=== PATIENT | female | born 1985 | race Caucasian/White ===

== ENCOUNTER 2020-10-07 13:50 | Outpatient (REF) | payer OTHER, SELFPAY ==
--- NOTE | 2020-10-07 13:55 | US_ITS ---
EXAMINATION: US THYROID CLINICAL INFORMATION: Other specified abnormal findings of blood chemistry. COMPARISON: None TECHNIQUE: Linear transducer raymundo-scale and color Doppler examination with attention to the region of the thyroid. FINDINGS: SIZE: Measurements of the thyroid lobes and nodules are given in sagittal, anteroposterior and transverse dimensions respectively. Right Thyroid Lobe: 5.0 x 1.8 x 1.6 cm, volume 7.4 mL. Parenchyma: The gland echotexture is homogeneous. Thyroid vascularity is normal. Left Thyroid Lobe: 5.1 x 1.9 x 1.8 cm, volume 9.0 mL. Parenchyma: The gland echotexture is homogeneous. Thyroid vascularity is normal. Isthmus: 0.5 cm in maximum AP dimension. RIGHT THYROID LOBE: There is 1 nodule seen. 1. Location: Upper pole. Size: 0.4 x 0.2 x 0.4 cm. Nodule characteristics: Heterogeneous, smoothly marginated with no intranodular flow. ISTHMUS: No nodules. LEFT THYROID LOBE: No nodules. NODES: No lymphadenopathy is seen in the tissue surrounding the thyroid gland. US/US thyroid IMPRESSION: Small subcentimeter nonsuspicious right thyroid nodule. Mild thyroid enlargement but otherwise unremarkable.
[2020-10-07 16:41] LABS: MANUAL DIFF FLAG NO
[2020-10-07 16:47] LABS: Basophils Percent Auto 0.8 % (0-2); Eosinophils Absolute Auto 0.1 X10*3/uL (0.0-0.4); Eosinophils Percent Auto 1.7 % (0-4); Imm Gran Abs Auto 0.01 X10*3/uL (0.00-0.03); Imm Gran Pct Auto 0.2 % (0.0-0.4); Lymphocytes Absolute Auto 1.7 X10*3/uL (1.2-4.9); Lymphocytes Percent Auto 34.9 % (20-40); Mean Corpuscular HGB Conc 35.3 g/dl (31.0-35.0); Mean Corpuscular Hemoglobin 33.4 pg (27.0-33.0); Mean Corpuscular Volume 94.7 fL (80-98); Monocytes Absolute Auto 0.4 X10*3/uL (0.1-1.2); Monocytes Percent Auto 7.4 % (2-11); Neutrophils Absolute Auto 2.6 X10*3/uL (2.0-8.3); Platelet Count 238 X10*3/uL (160-400); Red Blood Count 3.59 X10*6/uL (4.20-5.50); Red Cell Distribution Width 12.1 % (11.0-16.0); White Blood Count 4.8 X10*3/uL (4.8-10.8)
[2020-10-07 17:07] LABS: Alanine Aminotransferase 15 U/L (0-31); Albumin Level 4.5 g/dL (3.5-5.0); Alkaline Phosphatase 52 U/L (39-117); Anion Gap 12 (12-20); Aspartate Amino Transferase 18 U/L (5-31); Bilirubin Total 0.5 mg/dL (0.0-1.0); Blood Urea Nitrogen 14 mg/dL (9-16); Calcium 9.3 mg/dL (8.4-10.2); Carbon Dioxide 28 mmol/L (22-29); Chloride 106 mmol/L (96-108); Estimated Glomerular Filt Rate > 60; Glucose Random 60 mg/dL (60-115); Sodium 142 mmol/L (135-145); Total Protein 6.9 g/dL (6.5-8.0)
[2020-10-07 17:30] LABS: TSH reflex Free T4 0.43 mIU/mL (0.32-4.0)
[2020-10-08 06:43] LABS: Triiodothyronine T3 Free 3.1 pg/mL (2.3-4.2)
[2020-10-08 12:08] LABS: Thyroid Peroxidase Antibodies 83 IU/mL (<9)
[2020-10-11 15:13] LABS: Thyrotropin Receptor Antibody 1.74 IU/L (<=2.00)
== END 2020-10-07 13:51 | disposition home or self-care (01) ==
LOC: HO.HMGCX 13:50
PROVIDERS: PCP Nurse Practitioner Family; Visit Provider Nurse Practitioner Family
DX: R79.89 Other specified abnormal findings of blood chemistry (principal)
CPT/HCPCS: 36415; 76536; 80053; 83520; 84443; 84481; 85025; 86376

== ENCOUNTER 2020-10-11 14:21 | Outpatient (REF) | payer OTHER, SELFPAY | END 2020-10-11 14:22 | disposition home or self-care (01) | LOC: HO.HMGCLDS 14:21 | PROVIDERS: PCP Nurse Practitioner Family; Visit Provider Nurse Practitioner Family | DX: Z13.89 Encounter for screening for other disorder (principal) ==

== ENCOUNTER → 2020-12-05 08:38 | Outpatient (BNVA) | payer OTHER, SELFPAY | PROVIDERS: PCP Nurse Practitioner Family; Visit Provider Internal Medicine | DX: E06.3 Autoimmune thyroiditis (principal); E55.9 Vitamin D deficiency, unspecified | CPT/HCPCS: 99202 ==

== ENCOUNTER 2020-12-05 09:47 | Outpatient (REF) | payer OTHER, SELFPAY ==
[2020-12-05 14:49] LABS: Thyroid Stimulating Hormone 0.68 uIU/mL (0.32-4.0)
[2020-12-06 07:47] LABS: Triiodothyronine T3 Total 90 ng/dL (76-181)
[2020-12-06 10:52] LABS: Thyroid Peroxidase Antibodies 76 IU/mL (<9)
[2020-12-09 07:27] LABS: Thyroglobulin Antibody <1 IU/mL (<=1); Thyroglobulin Level 6.4 ng/mL
[2020-12-11 15:52] LABS: Thyroid Stimulating Immunoglob 226 % baseline (<140)
== END 2020-12-05 09:48 | disposition home or self-care (01) ==
LOC: HO.10HDL 09:47
PROVIDERS: Visit Provider Internal Medicine
DX: E04.9 Nontoxic goiter, unspecified (principal); E06.3 Autoimmune thyroiditis; E55.9 Vitamin D deficiency, unspecified
CPT/HCPCS: 36415; 83520; 84432; 84439; 84443; 84445; 84480; 86376; 86800

== ENCOUNTER → 2021-01-01 13:43 | Outpatient (REF) | payer OTHER, SELFPAY ==
--- NOTE | 2021-01-01 14:00 | CA_ITS ---
Transthoracic Echocardiogram Patient (Last, First, Middle): Joann Montejo M Gender: Female Date of : 1985 Age: 35 Procedure Date: 01/01/2021 Procedure Type: Transthoracic Echocardiogram Location: OP Height: 165.1 cm Weight: 81.65 kg BSA: 1.89 m2 Heart Rate: bpm BP: 120 / 80 mmHg Efficiency Analyst: RAY Referring MD: Sean Lorenz MD Machinery Cleaner: Seng Whitman MD Symptoms: I36.1 NON RHEUMATIC TRICUSPID VALVE INSUFFICIENCY Study Quality: Good ECG Rhythm: Sinus Conclusions: - Essentially normal study with mild TR Findings Left Ventricle Normal left ventricular size, thickness, and systolic function. The visually estimated ejection fraction is between 55-60%. Diastolic function is normal for age. Right Ventricle Normal right ventricular cavity size and systolic function. Atria Both atria are normal in size. There is no evidence of interatrial shunt. Aortic Valve The aortic valve structure and function is likely normal. There is no aortic valve stenosis. There is no aortic valve regurgitation. Mitral Valve Normal mitral valve structure and function. There is trace mitral valve regurgitation. There is no mitral valve stenosis. Pulmonic Valve The pulmonic valve was not well visualized. Tricuspid Valve Likely normal tricuspid valve structure and function. There is mild tricuspid valve regurgitation. The right ventricular systolic pressure is normal. The right ventricular systolic pressure is 20 mmHg. Normal right atrial pressure. There is no evidence of pulmonary hypertension. Great Vessels All visible segments of the aorta are normal in size. The pulmonary artery was not well visualized. Venous The inferior vena cava is normal in size and collapses greater than 50% with inspiration. Pericardium/Pleural There is no evidence of pericardial effusion. Prior Study Comparison Changes noted compared to prior study dated: 12/27/2019. TR appears to be milder on this study Measurements M-Mode Liner Measurements Normals - Women/Men LVIDd: 4.94 3.9-5.3/4.2-5.9 cm LVIDd Index: 2.61 1.9-3.2 cm/m2 LVIDs: 3.65 2.0-3.8 cm M-Mode Volumes LV EDV: 115.00 LV ESV: 56.30 2D Linear Measurements IVSd: 0.94 0.6-0.9/0.6-1.0 cm LVIDd: 4.65 3.9-5.3/4.2-5.9 cm LVIDd Index: 2.46 2.4-3.2/2.2-3.1 cm/m2 LVIDs: 3.49 2.0-3.6 cm LVPWd: 0.82 0.7-1.1 cm Ao Root: 2.80 2.1-3.5 cm LA Diam: 2.90 2.7-3.8/3.0-4.0 cm LAIDs Index: 1.53 1.5-2.3 cm/m2 LV Mass: 168.45 67-162/88-224 g LV Mass Index: 89.13 43-95/49-115 g/m2 LVOT Diam: 2.00 3.0+(-)1.3 cm 2D Systolic Function EF 4C: 52.70 >55% EF 2C: 60.70 >55% EF BiP: 57.10 >55% M-Mode Systolic Function FS: 26.10 27-47/25-43% LVEF: 51.00 >55% Mitral Valve MV Pk E: 0.71 MV PK A: 0.45 MV Decel Time: 183.00 E/A: 1.60 E'Lateral: 13.50 E'Medial: 8.92 E/E' Med: 8.00 E/E' Lat: 5.30 PHT: 54.00 MVA PHT: 4.07 Decel [place]: 3.89 Aortic Valve AoV Pk Chad: 1.30 AoV Pk Grad: 7.00 LVOT LVOT Pk Chad: 1.17 LVOT Mn Chad: 0.76 LVOT VTI: 0.21 LVOT Pk Grad: 5.00 LVOT Mn Grad: 3.00 LVOT Diam: 2.00 LVOT Area: 3.14 Diastolic Function MV Pk E: 0.71 MV Pk A: 0.45 E/A: 1.60 E'Medial: 8.92 E/E' Med: 8.00 E' Laterial: 13.50 E/E' Lat: 5.30 Tricuspid Valve TR Pk Chad: 2.04 TR Pk Grad: 17.00 RA Press: 3.00 RVSP: 20.00 Great Vessels Aorta Ao Root-2D: 2.80 2.0-3.7 cm Ao Asc: 3.30 2.1-3.4 cm Ao Arch: 2.80 Updated in Other Vendor System with Status of Final Seng Whitman MD electronically signed on 01/01/2021 4:11:21 PM with status of Final
== END ==
LOC: HO.CARD 13:43
PROVIDERS: Visit Provider Internal Medicine
DX: I36.1 Nonrheumatic tricuspid (valve) insufficiency (principal)
CPT/HCPCS: 93306

== ENCOUNTER → 2021-01-07 15:00 | Outpatient (BNVA) | payer OTHER, SELFPAY | PROVIDERS: PCP Nurse Practitioner Family; Visit Provider Internal Medicine | DX: I36.1 Nonrheumatic tricuspid (valve) insufficiency (principal) | CPT/HCPCS: 93005 ==

== ENCOUNTER 2021-01-18 11:16 | Outpatient (REF) | payer OTHER, SELFPAY | END 2021-01-18 11:17 | disposition home or self-care (01) | LOC: HO.LNP 11:16 | PROVIDERS: Visit Provider Hospitalist | DX: R42 Dizziness and giddiness (principal); Z20.822 Contact with and (suspected) exposure to COVID-19 | CPT/HCPCS: U0003; U0005 ==

== ENCOUNTER 2021-01-28 15:40 | Outpatient (REF) | payer OTHER, SELFPAY ==
--- NOTE | ~2021-01-28 | XR_ITS ---
EXAMINATION: XR CHEST CLINICAL INFORMATION: Shortness of breath COMPARISON: None TECHNIQUE: 2 views of the chest were obtained. FINDINGS: No focal consolidation. There is no pneumothorax. The trachea is midline. The cardiac mediastinal silhouette is not enlarged. There is no pleural effusions. Structures are intact. Soft tissues are unremarkable. XR/XR chest 2V IMPRESSION: No acute cardiopulmonary process.
== END 2021-01-28 15:41 | disposition home or self-care (01) ==
LOC: HO.HMGCX 15:40
PROVIDERS: PCP Nurse Practitioner Family; Visit Provider Nurse Practitioner Family
DX: R06.02 Shortness of breath (principal)
CPT/HCPCS: 71046

== ENCOUNTER 2021-01-29 10:21 | Outpatient (REF) | payer OTHER, SELFPAY ==
[2021-01-29 11:11] LABS: MANUAL DIFF FLAG NO
[2021-01-29 11:25] LABS: Basophils Percent Auto 0.6 % (0-2); Eosinophils Absolute Auto 0.1 X10*3/uL (0.0-0.4); Eosinophils Percent Auto 1.5 % (0-4); Hemoglobin 11.9 g/dl (12.0-16.0); Imm Gran Abs Auto 0.01 X10*3/uL (0.00-0.03); Imm Gran Pct Auto 0.2 % (0.0-0.4); Lymphocytes Absolute Auto 1.6 X10*3/uL (1.2-4.9); Lymphocytes Percent Auto 34.5 % (20-40); Mean Corpuscular Hemoglobin 31.5 pg (27.0-33.0); Mean Corpuscular Volume 92.6 fL (80-98); Mean Platelet Volume 10.8 fL (9.4-12.3); Monocytes Absolute Auto 0.3 X10*3/uL (0.1-1.2); Monocytes Percent Auto 6.7 % (2-11); Neutrophils Absolute Auto 2.6 X10*3/uL (2.0-8.3); Neutrophils Percent Auto 56.5 % (45-73); Platelet Count 247 X10*3/uL (160-400); Red Blood Count 3.78 X10*6/uL (4.20-5.50); Red Cell Distribution Width 12.2 % (11.0-16.0); White Blood Count 4.7 X10*3/uL (4.8-10.8)
[2021-01-29 11:33] LABS: D Dimer < 200 NG/ML
[2021-01-29 11:48] LABS: Anion Gap 13 (12-20); Blood Urea Nitrogen 15 mg/dL (9-16); Calcium 9.7 mg/dL (8.4-10.2); Carbon Dioxide 28 mmol/L (22-29); Chloride 104 mmol/L (96-108); Estimated Glomerular Filt Rate > 60; Glucose Random 80 mg/dL (60-115); Sodium 141 mmol/L (135-145)
== END 2021-01-29 10:22 | disposition home or self-care (01) ==
LOC: HO.HMGCLDS 10:21
PROVIDERS: PCP Nurse Practitioner Family; Visit Provider Nurse Practitioner Family
DX: R06.02 Shortness of breath (principal)
CPT/HCPCS: 36415; 80048; 85025; 85379

== ENCOUNTER → 2021-02-10 14:22 | Outpatient (BNVA) | payer OTHER, SELFPAY | PROVIDERS: PCP Nurse Practitioner Family; Visit Provider Internal Medicine ==

== ENCOUNTER 2021-03-21 12:09 | Outpatient (REF) | payer OTHER, SELFPAY ==
[2021-03-21 13:58] LABS: MANUAL DIFF FLAG NO
[2021-03-21 14:05] LABS: Basophils Percent Auto 0.6 % (0-2); Eosinophils Absolute Auto 0.1 X10*3/uL (0.0-0.4); Eosinophils Percent Auto 1.3 % (0-4); Hematocrit 38.5 % (37-47); Imm Gran Abs Auto 0.01 X10*3/uL (0.00-0.03); Imm Gran Pct Auto 0.2 % (0.0-0.4); Lymphocytes Absolute Auto 1.8 X10*3/uL (1.2-4.9); Lymphocytes Percent Auto 32.7 % (20-40); Mean Corpuscular HGB Conc 33.8 g/dl (31.0-35.0); Mean Corpuscular Hemoglobin 31.9 pg (27.0-33.0); Mean Corpuscular Volume 94.4 fL (80-98); Mean Platelet Volume 10.5 fL (9.4-12.3); Monocytes Absolute Auto 0.4 X10*3/uL (0.1-1.2); Monocytes Percent Auto 7.4 % (2-11); Neutrophils Absolute Auto 3.1 X10*3/uL (2.0-8.3); Neutrophils Percent Auto 57.8 % (45-73); Platelet Count 264 X10*3/uL (160-400); Red Blood Count 4.08 X10*6/uL (4.20-5.50); Red Cell Distribution Width 12.5 % (11.0-16.0); White Blood Count 5.4 X10*3/uL (4.8-10.8)
[2021-03-21 14:18] LABS: Alanine Aminotransferase 17 U/L (0-31); Albumin Level 4.7 g/dL (3.5-5.0); Alkaline Phosphatase 42 U/L (39-117); Anion Gap 13 (12-20); Aspartate Amino Transferase 21 U/L (5-31); Bilirubin Total 0.5 mg/dL (0.0-1.0); Blood Urea Nitrogen 15 mg/dL (9-16); Calcium 10.1 mg/dL (8.4-10.2); Carbon Dioxide 26 mmol/L (22-29); Chloride 103 mmol/L (96-108); Estimated Glomerular Filt Rate > 60; Glucose Random 96 mg/dL (60-115); Iron 61 mcg/dL (30-160); Percent Iron Saturation 14 % (15-50); Potassium 4.2 mmol/L (3.3-5.1); Sodium 138 mmol/L (135-145); Total Iron Binding Capacity 442 mcg/dL (228-428); Total Protein 7.7 g/dL (6.5-8.0); Unsaturated Iron Binding 381 ug/dL
[2021-03-21 14:40] LABS: Ferritin 35 ng/mL (10-122)
[2021-03-21 14:54] LABS: Folate 18.6 ng/mL (> or = 4.0); Vitamin B12 598 pg/mL (200-900)
[2021-03-24 20:21] LABS: Intrinsic Factor Antibodies Negative (Negative)
[2021-03-26 11:42] LABS: Parietal Cell Antibody 24.4 Unit (<=20.0)
[2021-03-27 10:16] LABS: Methylmalonic Acid 128 nmol/L (87-318)
== END 2021-03-21 12:10 | disposition home or self-care (01) ==
LOC: HO.HMGCLDS 12:09
PROVIDERS: PCP Nurse Practitioner Family; Visit Provider Nurse Practitioner Family
DX: R42 Dizziness and giddiness (principal)
CPT/HCPCS: 36415; 80053; 82607; 82728; 82746; 83516; 83540; 83921; 85025; 86340

== ENCOUNTER 2021-04-15 09:06 | Outpatient (REF) | payer OTHER, SELFPAY ==
[2021-04-15 12:10] LABS: D Dimer < 200 NG/ML
[2021-04-15 12:42] LABS: Thyroid Stimulating Hormone 0.83 uIU/mL (0.32-4.0)
[2021-04-16 17:16] LABS: Thyroid Peroxidase Antibodies 116 IU/mL (<9)
[2021-04-18 15:57] LABS: Thyroid Stimulating Immunoglob 210 % baseline (<140)
== END 2021-04-15 09:07 | disposition home or self-care (01) ==
LOC: HO.HMGCLDS 09:06
PROVIDERS: PCP Nurse Practitioner Family; Visit Provider Internal Medicine
DX: O26.90 Pregnancy related conditions, unspecified, unspecified trimester (principal); E06.3 Autoimmune thyroiditis
CPT/HCPCS: 36415; 84439; 84443; 84445; 85379; 86376

== ENCOUNTER → 2021-05-15 14:24 | Outpatient (BNVA) | payer OTHER, SELFPAY | PROVIDERS: PCP Nurse Practitioner Family; Visit Provider Internal Medicine ==

== ENCOUNTER 2021-05-28 09:57 | Outpatient (REF) | payer OTHER, SELFPAY ==
[2021-05-28 11:07] LABS: Free T4 (Free Thyroxine) 1.05 ng/dL (0.71-1.85); Thyroid Stimulating Hormone 0.18 uIU/mL (0.32-4.0)
[2021-05-29 08:07] LABS: Triiodothyronine T3 Free 2.9 pg/mL (2.3-4.2)
[2021-06-04 15:51] LABS: Thyroid Stimulating Immunoglob 180 % baseline (<140)
== END 2021-05-28 09:58 | disposition home or self-care (01) ==
LOC: HO.10HDL 09:57
PROVIDERS: Visit Provider Internal Medicine
DX: E05.00 Thyrotoxicosis with diffuse goiter without thyrotoxic crisis or storm (principal); E06.3 Autoimmune thyroiditis
CPT/HCPCS: 36415; 84439; 84443; 84445; 84481

== ENCOUNTER 2021-07-07 08:36 | Outpatient (REF) | payer OTHER, SELFPAY ==
[2021-07-07 12:01] LABS: Free T4 (Free Thyroxine) 0.93 ng/dL (0.71-1.85); Thyroid Stimulating Hormone 0.49 uIU/mL (0.32-4.0)
[2021-07-09 01:58] LABS: Triiodothyronine T3 Free 2.9 pg/mL (2.3-4.2)
== END 2021-07-07 08:37 | disposition home or self-care (01) ==
LOC: HO.HMGCLDS 08:36
PROVIDERS: PCP Nurse Practitioner Family; Visit Provider Internal Medicine
DX: E05.00 Thyrotoxicosis with diffuse goiter without thyrotoxic crisis or storm (principal)
CPT/HCPCS: 36415; 84439; 84443; 84481

== ENCOUNTER 2021-08-08 14:28 | Outpatient (REF) | payer OTHER, SELFPAY ==
[2021-08-08 18:28] LABS: Free T4 (Free Thyroxine) 0.85 ng/dL (0.71-1.85); Thyroid Stimulating Hormone 0.56 uIU/mL (0.32-4.0)
[2021-08-10 13:12] LABS: Triiodothyronine T3 Free 2.6 pg/mL (2.3-4.2)
== END 2021-08-08 14:29 | disposition home or self-care (01) ==
LOC: HO.HMGCLDS 14:28
PROVIDERS: PCP Nurse Practitioner Family; Visit Provider Internal Medicine
DX: E05.00 Thyrotoxicosis with diffuse goiter without thyrotoxic crisis or storm (principal)
CPT/HCPCS: 36415; 84439; 84443; 84481

== ENCOUNTER 2021-09-18 12:55 | Outpatient (REF) | payer OTHER, SELFPAY ==
[2021-09-18 14:45] LABS: Free T4 (Free Thyroxine) 0.79 ng/dL (0.71-1.85); Thyroid Stimulating Hormone 0.66 uIU/mL (0.32-4.0)
[2021-09-20 05:21] LABS: Triiodothyronine T3 Total 142 ng/dL (76-181)
[2021-09-24 14:11] LABS: Thyrotropin Receptor Antibody 1.18 IU/L (<=2.00)
== END 2021-09-18 12:56 | disposition home or self-care (01) ==
LOC: HO.HMGCLDS 12:55
PROVIDERS: PCP Nurse Practitioner Family; Visit Provider Internal Medicine
DX: E05.00 Thyrotoxicosis with diffuse goiter without thyrotoxic crisis or storm (principal)
CPT/HCPCS: 36415; 83520; 84439; 84443; 84480

== ENCOUNTER → 2021-10-10 12:49 | Outpatient (REF) | payer OTHER, SELFPAY ==
--- NOTE | 2021-10-10 12:52 | CA_ITS ---
Transthoracic Echocardiogram Patient (Last, First, Middle): Joann Rowell M Gender: Female Date of : 1985 Age: 36 Procedure Date: 10/10/2021 Procedure Type: Transthoracic Echocardiogram Location: OP Height: 165.1 cm Weight: 88.45 kg BSA: 1.96 m2 Heart Rate: bpm BP: 118 / 65 mmHg Sales Operations Assistant: Referring MD: Sean Lorenz MD Symptoms: I36.1 - Nonrheumatic tricuspid (valve) insufficiency Study Quality: Good ECG Rhythm: Sinus Conclusions: - The left ventricular systolic function is normal. The visually estimated ejection fraction is between 60-65%. - Normal right ventricular cavity size and systolic function. - Trace to mild tricuspid regurgitation. Findings Left Ventricle Normal left ventricular cavity size. There is normal left ventricular wall thickness. The left ventricular systolic function is normal. The visually estimated ejection fraction is between 60-65%. There is no evidence of regional wall motion abnormalities. Diastolic function is normal for age. Right Ventricle Normal right ventricular cavity size and systolic function. Atria Both atria are normal in size. Aortic Valve There is a normal trileaflet aortic valve. There is no aortic valve stenosis. There is no aortic valve regurgitation. Mitral Valve The mitral valve appears normal. There is no mitral valve regurgitation. There is no mitral valve stenosis. Pulmonic Valve The pulmonic valve was not well visualized. Tricuspid Valve Normal tricuspid valve structure. The pulmonary artery systolic pressure is normal. Trace to mild tricuspid regurgitation. Great Vessels The aortic annulus, sinuses of valsalva, and asc aorta are normal in size. Venous The inferior vena cava is normal in size and collapses greater than 50% with inspiration. Pericardium/Pleural There is no evidence of pericardial effusion. Prior Study Comparison No significant change compared to prior study dated: 01/01/2021. Measurements 2D Linear Measurements RVIDd: 3.59 RVIDd Index: 1.83 IVSd: 0.91 0.6-0.9/0.6-1.0 cm LVIDd: 3.93 3.9-5.3/4.2-5.9 cm LVIDd Index: 2.01 2.4-3.2/2.2-3.1 cm/m2 LVIDs: 2.49 2.0-3.6 cm LVPWd: 0.91 0.7-1.1 cm Ao Root: 3.00 2.1-3.5 cm LA Diam: 3.40 2.7-3.8/3.0-4.0 cm LAIDs Index: 1.73 1.5-2.3 cm/m2 LV Mass: 134.18 67-162/88-224 g LV Mass Index: 68.46 43-95/49-115 g/m2 LVOT Diam: 2.10 3.0+(-)1.3 cm Mitral Valve MV Pk E: 0.70 MV PK A: 0.60 MV Decel Time: 217.00 E/A: 1.20 E'Lateral: 18.10 E'Medial: 12.90 E/E' Med: 5.40 E/E' Lat: 3.90 PHT: 64.00 MVA PHT: 3.44 Decel [place]: 3.23 Aortic Valve AoV Pk Chad: 1.71 AoV Mn Chad: 1.04 AoV VTI: 0.35 AoV Pk Grad: 12.00 Aov Mn Grad: 5.00 EARLINE Cont.VTI: 3.13 LVOT LVOT Pk Chad: 1.92 LVOT Mn Chad: 1.11 LVOT VTI: 0.32 LVOT Pk Grad: 15.00 LVOT Mn Grad: 6.00 LVOT Diam: 2.10 LVOT Area: 3.46 Diastolic Function MV Pk E: 0.70 MV Pk A: 0.60 E/A: 1.20 E'Medial: 12.90 E/E' Med: 5.40 E' Laterial: 18.10 E/E' Lat: 3.90 Right Ventricle TAPSE (mm): 25.00 TVS' Chad: 14.00 Tricuspid Valve TR Pk Chad: 2.43 TR Pk Grad: 24.00 Great Vessels Aorta Ao Root-2D: 3.00 2.0-3.7 cm Ao Asc: 3.40 2.1-3.4 cm Pulmonary Valve PV Pk Chad: 1.35 Peak PV Grad: 7.00 Updated in Other Vendor System with Status of Final Sean Lorenz MD electronically signed on 10/11/2021 11:05:17 AM with status of Final
== END ==
LOC: HO.CARD 12:49
PROVIDERS: Visit Provider Internal Medicine
DX: I36.1 Nonrheumatic tricuspid (valve) insufficiency (principal)
CPT/HCPCS: 93306

== ENCOUNTER 2021-10-14 14:23 | Outpatient (REF) | payer OTHER, SELFPAY ==
[2021-10-14 17:13] LABS: Free T4 (Free Thyroxine) 0.78 ng/dL (0.71-1.85)
[2021-10-15 23:47] LABS: Triiodothyronine T3 Free 2.6 pg/mL (2.3-4.2)
== END 2021-10-14 14:24 | disposition home or self-care (01) ==
LOC: HO.HMGCLDS 14:23
PROVIDERS: PCP Nurse Practitioner Family; Visit Provider Internal Medicine
DX: E05.00 Thyrotoxicosis with diffuse goiter without thyrotoxic crisis or storm (principal)
CPT/HCPCS: 36415; 84439; 84443; 84481

== ENCOUNTER → 2021-10-16 10:10 | Outpatient (BNVA) | payer OTHER, SELFPAY | PROVIDERS: PCP Nurse Practitioner Family; Referring Provider Nurse Practitioner Family; Visit Provider Internal Medicine ==

== ENCOUNTER → 2021-10-22 09:31 | Outpatient (BNVA) | payer OTHER, SELFPAY | PROVIDERS: PCP Nurse Practitioner Family; Visit Provider Internal Medicine ==

== ENCOUNTER 2021-11-26 09:09 | Outpatient (REF) | payer OTHER, SELFPAY ==
[2021-11-26 12:09] LABS: Free T4 (Free Thyroxine) 0.79 ng/dL (0.71-1.85); Thyroid Stimulating Hormone 0.93 uIU/mL (0.32-4.0)
== END 2021-11-26 09:10 | disposition home or self-care (01) ==
LOC: HO.HMGCLDS 09:09
PROVIDERS: Visit Provider Internal Medicine
DX: E06.3 Autoimmune thyroiditis (principal); E05.00 Thyrotoxicosis with diffuse goiter without thyrotoxic crisis or storm
CPT/HCPCS: 36415; 84439; 84443

== ENCOUNTER → 2022-03-04 08:39 | Outpatient (BNVA) | payer OTHER, SELFPAY | PROVIDERS: PCP Nurse Practitioner Family; Visit Provider Internal Medicine | DX: Z13.89 Encounter for screening for other disorder (principal) ==

== ENCOUNTER 2022-03-18 14:03 | Outpatient (REF) | payer OTHER, SELFPAY ==
[2022-03-18 17:14] LABS: Free T4 (Free Thyroxine) 1.07 ng/dL (0.71-1.85); Thyroid Stimulating Hormone 0.27 uIU/mL (0.32-4.0)
== END 2022-03-18 14:04 | disposition home or self-care (01) ==
LOC: HO.HMGCLDS 14:03
PROVIDERS: Visit Provider Internal Medicine
DX: E05.00 Thyrotoxicosis with diffuse goiter without thyrotoxic crisis or storm (principal)
CPT/HCPCS: 36415; 84439; 84443

== ENCOUNTER 2022-04-03 12:21 | Outpatient (REF) | payer OTHER, SELFPAY ==
[2022-04-03 14:31] LABS: Free T4 (Free Thyroxine) 1.51 ng/dL (0.71-1.85)
[2022-04-04 23:42] LABS: Triiodothyronine T3 Total 165 ng/dL (76-181)
[2022-04-07 19:20] LABS: Thyroglobulin Antibodies <1 IU/mL (< or = 1); Thyroid Peroxidase Antibodies 226 IU/mL (<9)
[2022-04-08 15:45] LABS: Thyroid Stimulating Immunoglob 157 % baseline (<140)
[2022-04-09 19:57] LABS: Thyrotropin Receptor Antibody <1.00 IU/L (<=2.00)
== END 2022-04-03 12:22 | disposition home or self-care (01) ==
LOC: HO.HMGCLDS 12:21
PROVIDERS: Visit Provider Internal Medicine
DX: E05.00 Thyrotoxicosis with diffuse goiter without thyrotoxic crisis or storm (principal)
CPT/HCPCS: 36415; 83520; 84439; 84445; 84480; 86376; 86800

== ENCOUNTER → 2022-04-14 08:22 | Outpatient (BNVA) | payer OTHER, SELFPAY | PROVIDERS: PCP Nurse Practitioner Family; Visit Provider Internal Medicine | DX: Z13.89 Encounter for screening for other disorder (principal) ==

== ENCOUNTER 2022-05-04 12:38 | Outpatient (REF) | payer OTHER, SELFPAY ==
[2022-05-04 15:53] LABS: Free T4 (Free Thyroxine) 1.86 ng/dL (0.71-1.85); Thyroid Stimulating Hormone < 0.01 uIU/mL (0.32-4.0)
[2022-05-06 04:29] LABS: Triiodothyronine T3 Total 198 ng/dL (76-181)
== END 2022-05-04 12:39 | disposition home or self-care (01) ==
LOC: HO.HMGCLDS 12:38
PROVIDERS: PCP Nurse Practitioner Family; Visit Provider Internal Medicine
DX: E05.00 Thyrotoxicosis with diffuse goiter without thyrotoxic crisis or storm (principal)
CPT/HCPCS: 36415; 84439; 84443; 84480

== ENCOUNTER 2022-05-27 14:53 | Outpatient (REF) | payer OTHER, SELFPAY ==
[2022-05-27 17:01] LABS: Free T4 (Free Thyroxine) 1.33 ng/dL (0.71-1.85)
[2022-05-29 17:11] LABS: Triiodothyronine T3 Total 133 ng/dL (76-181)
== END 2022-05-27 14:54 | disposition home or self-care (01) ==
LOC: HO.HMGCLDS 14:53
PROVIDERS: PCP Nurse Practitioner Family; Visit Provider Internal Medicine
DX: E05.00 Thyrotoxicosis with diffuse goiter without thyrotoxic crisis or storm (principal)
CPT/HCPCS: 36415; 84439; 84480

== ENCOUNTER 2022-06-24 15:05 | Outpatient (REF) | payer OTHER, SELFPAY ==
[2022-06-24 17:48] LABS: Free T4 (Free Thyroxine) 0.83 ng/dL (0.71-1.85); Thyroid Stimulating Hormone 0.33 uIU/mL (0.32-4.0)
[2022-06-25 20:55] LABS: Triiodothyronine T3 Total 85 ng/dL (76-181)
== END 2022-06-24 15:06 | disposition home or self-care (01) ==
LOC: HO.HMGCLDS 15:05
PROVIDERS: PCP Nurse Practitioner Family; Visit Provider Internal Medicine
DX: E05.00 Thyrotoxicosis with diffuse goiter without thyrotoxic crisis or storm (principal)
CPT/HCPCS: 36415; 84439; 84443; 84480

== ENCOUNTER 2022-08-26 14:35 | Outpatient (REF) | payer OTHER, SELFPAY ==
[2022-08-26 17:07] LABS: Free T4 (Free Thyroxine) 0.77 ng/dL (0.71-1.85); Thyroid Stimulating Hormone 4.95 uIU/mL (0.32-4.0)
[2022-08-27 22:17] LABS: Triiodothyronine T3 Total 84 ng/dL (76-181)
== END 2022-08-26 14:36 | disposition home or self-care (01) ==
LOC: HO.HMGCLDS 14:35
PROVIDERS: PCP Nurse Practitioner Family; Visit Provider Internal Medicine
DX: E05.00 Thyrotoxicosis with diffuse goiter without thyrotoxic crisis or storm (principal)
CPT/HCPCS: 36415; 84439; 84443; 84480

== ENCOUNTER 2022-09-15 14:37 | Outpatient (REF) | payer OTHER, SELFPAY ==
[2022-09-15 17:22] LABS: Free T4 (Free Thyroxine) 0.78 ng/dL (0.71-1.85)
[2022-09-16 08:52] LABS: Triiodothyronine T3 Total 92 ng/dL (76-181)
== END 2022-09-15 14:38 | disposition home or self-care (01) ==
LOC: HO.HMGCLDS 14:37
PROVIDERS: PCP Nurse Practitioner Family; Visit Provider Internal Medicine
DX: E05.00 Thyrotoxicosis with diffuse goiter without thyrotoxic crisis or storm (principal)
CPT/HCPCS: 36415; 84439; 84480

== ENCOUNTER 2022-10-12 12:33 | Outpatient (REF) | payer OTHER, SELFPAY ==
[2022-10-12 15:04] LABS: Free T4 (Free Thyroxine) 0.89 ng/dL (0.71-1.85)
[2022-10-14 00:39] LABS: Triiodothyronine T3 Total 95 ng/dL (76-181)
== END 2022-10-12 12:34 | disposition home or self-care (01) ==
LOC: HO.HMGCLDS 12:33
PROVIDERS: PCP Nurse Practitioner Family; Visit Provider Internal Medicine
DX: E05.00 Thyrotoxicosis with diffuse goiter without thyrotoxic crisis or storm (principal)
CPT/HCPCS: 36415; 84439; 84480

== ENCOUNTER 2022-12-02 12:00 | Outpatient (REF) | payer OTHER, SELFPAY ==
[2022-12-02 17:12] LABS: Free T4 (Free Thyroxine) 0.76 ng/dL (0.71-1.85)
[2022-12-04 02:27] LABS: Triiodothyronine T3 Total 84 ng/dL (76-181)
== END 2022-12-02 12:01 | disposition home or self-care (01) ==
LOC: HO.HMGCLDS 12:00
PROVIDERS: PCP Nurse Practitioner Family; Visit Provider Internal Medicine
DX: E05.00 Thyrotoxicosis with diffuse goiter without thyrotoxic crisis or storm (principal)
CPT/HCPCS: 36415; 84439; 84443; 84480

== ENCOUNTER 2022-12-09 13:32 | Outpatient (REF) | payer OTHER, SELFPAY ==
[2022-12-09 14:29] LABS: MANUAL DIFF FLAG NO
[2022-12-09 15:08] LABS: Basophils Percent Auto 0.4 % (0-2); Eosinophils Absolute Auto 0.1 X10*3/uL (0.0-0.4); Eosinophils Percent Auto 0.8 % (0-4); Hematocrit 36.5 % (37.0-47.0); Hemoglobin 12.4 g/dl (12.0-16.0); Imm Gran Abs Auto 0.01 X10*3/uL (0.00-0.03); Imm Gran Pct Auto 0.1 % (0.0-0.4); Lymphocytes Absolute Auto 1.9 X10*3/uL (1.2-4.9); Lymphocytes Percent Auto 26.8 % (20-40); Mean Corpuscular Hemoglobin 31.4 pg (27.0-33.0); Mean Corpuscular Volume 92.4 fL (80.0-98.0); Mean Platelet Volume 10.3 fL (9.4-12.3); Monocytes Absolute Auto 0.4 X10*3/uL (0.1-1.2); Neutrophils Absolute Auto 4.7 x10*3/uL (2.0-8.3); Neutrophils Percent Auto 65.9 % (45-73); Platelet Count 246 X10*3/uL (160-400); Red Blood Count 3.95 X10*6/uL (4.20-5.50); White Blood Count 7.1 X10*3/uL (4.8-10.8)
[2022-12-09 16:02] LABS: Free T4 (Free Thyroxine) 1.05 ng/dL (0.71-1.85)
[2022-12-11 07:53] LABS: Triiodothyronine T3 Total 122 ng/dL (76-181)
== END 2022-12-09 13:33 | disposition home or self-care (01) ==
LOC: HO.LAB 13:32
PROVIDERS: PCP Nurse Practitioner Family; Visit Provider Internal Medicine
DX: E05.00 Thyrotoxicosis with diffuse goiter without thyrotoxic crisis or storm (principal); E06.3 Autoimmune thyroiditis; Z79.899 Other long term (current) drug therapy; Z82.69 Family history of other diseases of the musculoskeletal system and connective tissue
CPT/HCPCS: 36415; 84439; 84480; 85025; 99212

== ENCOUNTER 2022-12-28 11:28 | Outpatient (REF) | payer OTHER, SELFPAY ==
[2022-12-28 14:15] LABS: Free T4 (Free Thyroxine) 0.91 ng/dL (0.71-1.85); Thyroid Stimulating Hormone 0.69 uIU/mL (0.32-4.0); Vitamin D 25-OH Total 17.5 ng/mL (>30)
[2022-12-29 06:32] LABS: Triiodothyronine T3 Total 98 ng/dL (76-181)
[2022-12-31 16:13] LABS: Thyroid Stimulating Immunoglob 205 % baseline (<140)
== END 2022-12-28 11:29 | disposition home or self-care (01) ==
LOC: HO.HMGCLDS 11:28
PROVIDERS: PCP Nurse Practitioner Family; Visit Provider Internal Medicine
DX: E05.00 Thyrotoxicosis with diffuse goiter without thyrotoxic crisis or storm (principal); E55.9 Vitamin D deficiency, unspecified
CPT/HCPCS: 36415; 82306; 84439; 84443; 84445; 84480

== ENCOUNTER → 2023-03-31 14:12 | Outpatient (BNVA) | payer OTHER, SELFPAY | PROVIDERS: PCP Nurse Practitioner Family; Visit Provider Internal Medicine ==

== ENCOUNTER 2023-04-07 14:12 | Outpatient (REF) | payer OTHER, SELFPAY ==
[2023-04-07 17:10] LABS: Thyroid Stimulating Hormone 0.72 uIU/mL (0.32-4.0); Vitamin D 25-OH Total 31.5 ng/mL (>30)
[2023-04-10 07:48] LABS: Triiodothyronine T3 Total 96 ng/dL (76-181)
== END 2023-04-07 14:13 | disposition home or self-care (01) ==
LOC: HO.HMGCLDS 14:12
PROVIDERS: PCP Nurse Practitioner Family; Visit Provider Internal Medicine
DX: E05.00 Thyrotoxicosis with diffuse goiter without thyrotoxic crisis or storm (principal); E55.9 Vitamin D deficiency, unspecified
CPT/HCPCS: 36415; 82306; 84439; 84443; 84480

== ENCOUNTER 2024-03-29 08:30 | Outpatient (AMB) | payer OTHER, SELFPAY ==
--- NOTE | 2024-03-29 08:36 | MHC.PC.OV ---
Vital Signs 03/29/24 08:38 03/29/24 09:05 Height 5 ft 5 in Weight 208 lb BMI 34.6 BP 126/90 H 126/88 Blood Pressure Location Rt brachial Rt brachial Position Sitting Sitting Pulse 61 Pulse Source Pulse Oximeter Pulse Oximetry (%) 98 Oxygen Delivery Method Room Air Intake Visit Reasons: Follow up vomiting blood Intake Note: Patient here to discuss getting a referral to Gastro for possible ulcers because she takes a lot of Nsaids. Allergies No Known Allergies [No Known Allergies*] Allergy (Verified 03/29/24 08:57) Medication List - Last Reconciled 03/29/24 by Leander Calle, REHAB SERVICES AIDE-BC ftctmuyzmd-odbtkqosuxoml-kjsh 50-300-40 mg 1 cap PO DAILY PRN 30 days diazepam 5 mg PO BEDTIME PRN erenumab-aooe (Aimovig Autoinjector) 70 mg subcut meclizine 12.5 mg PO TID PRN needle (disp) 27 gauge As directed ondansetron HCl 8 mg PO Q8H PRN pantoprazole 20 mg PO DAILY sertraline 50 mg PO DAILY 90 days sumatriptan succinate 100 mg PO DIRECTED PRN Tobacco use date assessed: 03/29/24 Dental Screening Dental Screen Date: 03/29/24 Did you have a dental visit in the last 12 months?: No Did you have a dental problem in the last 6 months where you did not have access to dental care?: No Was dental information given to patient?: No HPI Follow up vomiting blood HPI Details Pt reports increased abdominal discomfort. She reports an episode of vomiting months ago with a small amount of blood. She reports that the discomfort is worse after eating. Pt reports early satiety. Will order labs, upper GI series, and refer to GI. Will start low-dose PPI. Denies fever, chills, and dizziness. [facility] Medical History Graves disease Israel's disease Migraine Non-rheumatic tricuspid valve insufficiency Vitamin D deficiency Surgical History History of surgery Hx of section Status post laparoscopic surgery Family History Father Graves disease Mother Paco-Danlos syndrome Social History Housing: House Alcohol intake: never Patient Tobacco Use Status: Former Tobacco user Tobacco use type: Cigarette e-Cigarette/Vaping Use: Never Used Second Hand Smoke Exposure: No service: Yes Current occupational status: employed Current occupation: [employer] Current occupational exposures/hazards: No Cognitive needs: No Hearing needs: No Vision needs: No Questionnaire PHQ-9 Over the last 2 weeks, how often have you been bothered by any of the following problems? 79149 - PHQ-9 Billing: Patient declined-do not bill Source: Developed by Drs. Lino Jaimes, Bekah Fernandes, Lito Guthrie and colleagues, with an educational otto from [employer]. Thrive Questionnaire Date Thrive assessed: 07/02/22 AUDIT C Alcohol Use Questionnaire (AUDIT-C) 1. How often do you have a drink containing alcohol?: Never 3. How often do you have six or more drinks on one occasion?: Never Total Score: 0 Score Reviewed/Action Taken: No JEFFERY-7 AMB Questionnaire JEFFERY-7 Date JEFFERY - 7 assessed: 07/02/22 Source: Developed by Drs. Lino Jaimes, Bekah Fernandes, Lito Guthrie and colleagues, with an educational otto from [employer]. JEFFERY-7 Assessment Billing JEFFERY-7 Assessment Tool: pt declined-do not bill Review of Systems Const Reports as per HPI Physical exam (Primary Care) Vital Signs: Last Vital Signs Pulse 61 03/29/24 08:38 BP 126/90 H 03/29/24 08:38 Pulse Ox 98 03/29/24 08:38 Oxygen Delivery Method Room Air 03/29/24 08:38 BMI result Body Mass Index 34.6 Tobacco/Smoking Status: Tobacco use Status Tobacco use date assessed 03/29/24 03/29/24 08:46 Patient Tobacco Use Status Former Tobacco user 03/29/24 08:36 Tobacco use type Cigarette 03/29/24 08:36 e-Cigarette/Vaping Use Never Used 03/29/24 08:36 Thrive Assessment: Date of Thrive Assessment Date Thrive assessed 07/02/22 03/29/24 08:36 Const General: cooperative Nutritional Appearance: obese Orientation/consciousness: patient oriented x3 Resp Effort & Inspection: normal respiratory effort Auscultation: clear to auscultation bilaterally Cardio Rate: regular rate Rhythm: regular rhythm Heart sounds: S1 normal heart sound present and S2 normal heart sound present GI Palpation (GI): nontender Neuro General: patient oriented x3 Psych Appearance: grossly normal Mental Status: mental status grossly normal Speech and movement: Normal speech and movement present Affect: normal affect Attitude: cooperative Thought process: Normal thought process present Thought content: Normal thought content present Insight: Good insight present (Psych) Judgement: Good judgement present (Psych) Assessment and Plan Assessment & Plan (1) Abdominal discomfort: Code(s): R10.9 - Unspecified abdominal pain Plan: Labs ordered, referred to GI, PPI sent (2) Bloody emesis: Comment: described small droplets Code(s): K92.0 - Hematemesis Plan: upper GI series, PPI started, referral to gastro Plan The patient agreed to the use of a dental assistant medical assistant for this encounter. Scribed for DREW Godinez by Madison Rosas dental assistant medical assistant, on 03/29/2024 at 08:55 EST. Orders: Orders Complete Blood Count Auto Diff Today R10.9 - Unspecified abdominal pain TSH reflex Free T4 Today R10.9 - Unspecified abdominal pain Lipid Panel Today R10.9 - Unspecified abdominal pain FL upper GI series Today K92.0 - Hematemesis, R10.9 - Unspecified abdominal pain Comprehensive [place]. Panel Fast Today R10.9 - Unspecified abdominal pain UA CC w/rflx Micro + Cult Today R10.9 - Unspecified abdominal pain Lipase Today R10.9 - Unspecified abdominal pain Referrals Gastroenterology Referral R10.9 - Unspecified abdominal pain Medications: New pantoprazole 20 mg PO DAILY 90 tabs 0RF Changed From sumatriptan succinate 100 mg PO DIRECTED PRN To sumatriptan succinate 100 mg PO DIRECTED 30 days PRN 30 tabs 0RF migraine headache Coding Level of Care Code Est Pt Level 3 (92596) Diagnoses Abdominal discomfort R10.9 Bloody emesis K92.0
[2024-03-29 08:38] VITALS: BP 126/90; PULSE 61; O2SAT 98; BMI 34.6
[2024-03-29 09:05] VITALS: BP 126/88
== END 2024-03-29 09:13 | disposition home or self-care (01) ==
PROVIDERS: PCP Nurse Practitioner Family; Visit Provider Nurse Practitioner Family
DX: R10.9 Unspecified abdominal pain (principal); K92.0 Hematemesis
CPT/HCPCS: 99213

== ENCOUNTER 2024-05-03 11:41 | Outpatient (AMB) | payer OTHER, SELFPAY ==
[2024-05-03 11:51] VITALS: BP 128/78; PULSE 81; TEMP 37; O2SAT 97; BMI 33.7
--- NOTE | 2024-05-03 11:51 | MHC.OFFWIV ---
Intake Vital Signs 05/03/24 11:51 Height 5 ft 5 in Weight 202 lb 8 oz BMI 33.7 BP 128/78 Blood Pressure Location Lt brachial Position Sitting Pulse 81 Pulse Source Pulse Oximeter Temp 98.6 F Temp Source Oral Pulse Oximetry (%) 97 Intake Visit Reasons: EP sore throat Intake Note: pt is here for sore throat Patient Tobacco Use Status: Former Tobacco user Allergies No Known Allergies [No Known Allergies*] Allergy (Verified 05/03/24 11:51) Do you need a note to return to daycare/school/sports/work: Yes HPI EP sore throat HPI Details 38-year-old female patient presents today with sore throat, ongoing for the last week and worsening over the last couple of days. Reports red throat with notable white spots on her tonsils, and pain with eating and drinking. Denies known exposure to sick contacts. Denies fever or chills. [facility] Medical History Graves disease Non-rheumatic tricuspid valve insufficiency Migraine Vitamin D deficiency Israel's disease Surgical History Hx of section History of surgery Status post laparoscopic surgery Family History Father Graves disease Mother Paco-Danlos syndrome Social History Housing: House Alcohol intake: never Patient Tobacco Use Status: Former Tobacco user Tobacco use type: Cigarette e-Cigarette/Vaping Use: Never Used Second Hand Smoke Exposure: No service: Yes Current occupational status: employed Current occupation: [employer] Current occupational exposures/hazards: No Cognitive needs: No Hearing needs: No Vision needs: No Review of Systems Const All systems reviewed & are unremarkable except as noted in HPI and below Physical Exam Vital Signs: Last Vital Signs Temp 98.6 F 05/03/24 11:51 Pulse 81 05/03/24 11:51 BP 128/78 05/03/24 11:51 Pulse Ox 97 05/03/24 11:51 BMI result Body Mass Index 33.7 Const General: cooperative and no acute distress HEENT Head: Yes normal to inspection Ears: hearing grossly normal bilaterally General nose exam: Normal external nose present Face and sinus: Yes normal facial exam Mouth: Normal oral and palatal mucosa present Throat: Yes posterior oropharynx abnormal (Erythematous, with tonsillar hypertrophy, erythema, and exudate L>R) Neck Neck: Yes no lymphadenopathy Resp Effort & Inspection: normal respiratory effort Auscultation: clear to auscultation bilaterally Cardio Rate: regular rate Rhythm: regular rhythm Skin General skin exam: no rashes or lesions noted Extrem General: Yes capillary refill normal and Yes no clubbing, cyanosis or edema Psych Appearance: grossly normal Mental Status: mental status grossly normal Speech and movement: Normal speech and movement present Results AMB Rapid Strep AMB Rapid Strep Negative Last Edit by Elier Lau CMA on 05/03/24 12:03 Assessment & Plan Assessment & Plan (1) Strep pharyngitis: Code(s): J02.0 - Streptococcal pharyngitis Plan: Rapid strep in the office was negative, however clinically symptoms are consistent with strep pharyngitis as above. We will treat with pen V BID 10 days. Reviewed indications, use, possible side effects of medication. Advised to use [id number] lozenges and warm salt water gargles for symptomatic management. May also take Tylenol as needed. If she does not improve with treatment, or symptoms worsen, she should return to the clinic for further evaluation. She verbalizes understanding and agrees to plan. Orders: Orders AMB Rapid Strep Screen Today Z13.9 - Encounter for screening, unspecified Medications: New penicillin V potassium 500 mg PO BID 10 days 20 tabs 0RF J02.0 - Streptococcal pharyngitis Coding Level of Care Code Est Pt Level 4 (73505) Diagnoses Strep pharyngitis J02.0
== END 2024-05-03 12:12 | disposition home or self-care (01) ==
PROVIDERS: PCP Nurse Practitioner Family; Visit Provider Nurse Practitioner Family
DX: J02.0 Streptococcal pharyngitis (principal)
CPT/HCPCS: 87880; 99214

== ENCOUNTER → 2024-05-03 16:01 | Outpatient (AMB) | payer OTHER, SELFPAY ==
--- NOTE | 2024-05-03 16:04 | A.OFFVIS_ITS ---
Vital Signs 05/03/24 16:12 Height 5 ft 5 in Weight 203 lb 4.259 oz BMI 33.8 BP 128/82 Blood Pressure Location Rt brachial Position Sitting Pulse 98 Pulse Source Pulse Oximeter Pulse Oximetry (%) 96 Oxygen Delivery Method Room Air Intake Visit Reasons: Unspecified abdominal pain. Initial OV Intake Note: Joann presents in office today for a scheduled initial assessment visit. CC; Pt has been experiencing intermittent nausea and vomiting since the beginning of this year with mild hematoemesis. Pt was started on PPI per PCP. Pt reports abdominal pain has been mostly localized to the upper quadrants and seems worse after food intake. Pt does also report some abdominal pain in a localized area surrounding their obliques B/L. Pt reports that she has been taking a large amount of acetaminophen and ibuprofen in addition to sumatriptan for chronic severe migraines over the course of the last few years. Pt also reports having intermittent constipation. Pt reports having a bowel movement approximately 2x per week. Pt denies any diarrhea. Pt has been taking pantoprazole as directed by her PCP and has not noticed any significant changes in presentation. 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 Initial OV: Details: 38 years old female with past medical history of Graves disease, Israel disease, chronic migraines headaches, long-term NSAID use is here today for initial consultation. Patient reports that in the past 6 months her symptoms of epigastric pain postprandially has gotten worse. Patient has been experiencing more headaches and has been taking Advil and ibuprofen every day for the past few months. Patient reports dyspepsia without dysphagia or odynophagia. Patient was started on pantoprazole 20 mg daily, however she has not seeing much of a difference. Patient denies any nausea or vomiting. Admits to decrease bowel movements 2-3 a day. Patient tried MiraLax, senna in the past without any results. Patient denies any melena, hematochezia, unintentional weight loss or ribbon like stools. Patient denies any other GI concerning symptoms [facility] Medical History Graves disease Non-rheumatic tricuspid valve insufficiency Migraine Vitamin D deficiency Israel's disease Surgical History Hx of section History of surgery Status post laparoscopic surgery Family History Father Graves disease Mother Paco-Danlos syndrome Social History Housing: House Alcohol intake: never Patient Tobacco Use Status: Former Tobacco user Tobacco use type: Cigarette e-Cigarette/Vaping Use: Never Used Second Hand Smoke Exposure: No service: Yes Current occupational status: employed Current occupation: [employer] Current occupational exposures/hazards: No Cognitive needs: No Hearing needs: No Vision needs: No Review of Systems Const Denies weight gain and Denies weight loss ENT Reports no additional complaints, Denies dysphagia and Denies odynophagia Card Reports no additional complaints Resp Reports no additional complaints GI Reports abdominal pain (Epigastric), Denies belching, Denies melena, Reports bloating, Denies change in bowel habits, Reports constipation, Denies dysphagia, Denies excessive flatus, Reports dyspepsia, Reports heartburn, Denies diarrhea, Denies loose stools, Denies nausea, Denies odynophagia and Denies vomiting Reports no additional complaints Musc Reports no additional complaints Neuro Reports no additional complaints Psych Reports no additional complaints Endo Reports no additional complaints Physical Exam Const General: healthy appearing and no acute distress Nutritional Appearance: obese Orientation/consciousness: patient oriented x3 Resp Effort & Inspection: normal respiratory effort, able to speak in complete sentences, no tracheal deviation and symmetric chest movement Auscultation: clear to auscultation bilaterally Cardio Rate: regular rate GI Inspection: Yes normal to inspection, No distended and Yes obesity Palpation (GI): Soft to palpation, not firm, nontender and No hepatosplenomegaly present Auscultation: normal bowel sounds General: Yes no CVA tenderness Back/Spine/Pelvis Back: no CVA tenderness Skin General skin exam: elasticity normal, turgor normal and dry skin Neuro General: patient oriented x3 Psych Appearance: grossly normal Mental Status: mental status grossly normal Results AMB Rapid Strep AMB Rapid Strep Negative Last Edit by Elier Lau CMA on 05/03/24 12 :03 Assessment & Plan Assessment & Plan (1) Abdominal discomfort: Code(s): R10.9 - Unspecified abdominal pain Category: Medical (2) Postprandial epigastric pain: Code(s): R10.13 - Epigastric pain (3) GERD (gastroesophageal reflux disease): Code(s): K21.9 - Gastro-esophageal reflux disease without esophagitis Qualifiers: Esophagitis presence: esophagitis presence not specified Qualified Code(s): K21.9 - Gastro-esophageal reflux disease without esophagitis (4) Abdominal bloating: Code(s): R14.0 - Abdominal distension (gaseous) (5) Constipation: Code(s): K59.00 - Constipation, unspecified Qualifiers: Constipation type: slow transit constipation Qualified Code(s): K59.01 - Slow transit constipation Plan Patient reports postprandial epigastric pain and bloating. Patient will start taking Nexium in the morning and famotidine at bedtime. Avoid dietary triggers and late night snacking. Staying upright for minimum 3 hours after meals discussed with patient. Patient has upper GI series ordered awaiting scheduling that test. Lab work to rule out pancreatitis, celiac. Patient was encouraged to increase fluid intake and activity to promote better bowel motility. Patient will start taking Dulcolax in the evening. Patient will be sent for upper endoscopy to rule out gastritis, esophagitis, duodenitis, gastric or peptic ulcer, H pylori, Hernandez's. Patient denies any issues with anesthesia in the past. No history of sleep apnea. Not on any anticoagulation medication. Stop taking NSAIDs for week before procedure. I will see patient after the procedure, sooner on as needed basis. Patient is agreeable to current plan of care and verbalizes understanding of instructions. She was given the opportunity to ask questions and all questions answered. Thank you for allowing me to participate in her care Orders: Orders Transglutaminase IgA Today R10.9 - Unspecified abdominal pain Transglutaminase Ab IgG Today R10.9 - Unspecified abdominal pain FL upper GI series 03/29/24 K92.0 - Hematemesis, R10.9 - Unspecified abdominal pain Medications: New bisacodyl (Dulcolax (bisacodyl)) 10 mg (2 x 5 mg) PO BEDTIME 60 tabs 4RF esomeprazole magnesium (Nexium) Take half an hour before breakfast 40 mg PO DAILY 30 caps 5RF K21.9 - Gastro-esophageal reflux disease without esophagitis famotidine (Pepcid) 20 mg PO BEDTIME 30 tabs 3RF K21.9 - Gastro-esophageal reflux disease without esophagitis Discontinued pantoprazole Discontinued Reason: Doctor's Order 20 mg PO DAILY 90 tabs 0RF Coding Level of Care Code New Pt Level 4 (93611) Diagnoses Abdominal discomfort R10.9 Postprandial epigastric pain R10.13 Gastroesophageal reflux disease, unspecified whether esophagitis present K21.9 Esophagitis presence: esophagitis presence not specified Abdominal bloating R14.0 Slow transit constipation K59.01 Constipation type: slow transit constipation Time Spent (min) 45 Comment 30 minutes spent with patient and additional 15 minutes spent reviewing her records
[2024-05-03 16:12] VITALS: BP 128/82; PULSE 98; O2SAT 96; BMI 33.8
== END ==
PROVIDERS: PCP Nurse Practitioner Family; Visit Provider Nurse Practitioner Family
DX: R10.9 Unspecified abdominal pain (principal); R10.13 Epigastric pain; K21.9 Gastro-esophageal reflux disease without esophagitis; R14.0 Abdominal distension (gaseous); K59.01 Slow transit constipation
CPT/HCPCS: 99204

== ENCOUNTER → 2024-05-03 16:01 | Outpatient (BNVA) | payer OTHER, SELFPAY | PROVIDERS: PCP Nurse Practitioner Family; Visit Provider Nurse Practitioner Family | DX: K21.9 Gastro-esophageal reflux disease without esophagitis (principal); K59.01 Slow transit constipation; R10.13 Epigastric pain; R14.0 Abdominal distension (gaseous); Z79.899 Other long term (current) drug therapy | CPT/HCPCS: 99202 ==

== ENCOUNTER 2024-05-29 08:26 | Outpatient (AMB) | payer OTHER, SELFPAY ==
--- NOTE | 2024-05-29 08:49 | AM.OFFWIN_ITS ---
Intake Vital Signs 05/29/24 09:02 Height 5 ft 5 in Weight 202 lb BMI 33.6 BP 108/80 Blood Pressure Location Lt brachial Position Sitting Pulse 73 Pulse Source Pulse Oximeter Temp 98.7 F Temp Source Oral Pulse Oximetry (%) 98 Oxygen Delivery Method Room Air Intake Visit Reasons: EP ?Strep Intake Note: pt here c/o sore throat. ? strep. Started 3 days ago Patient Tobacco Use Status: Never used Tobacco Allergies No Known Allergies [No Known Allergies*] Allergy (Verified 05/29/24 08:49) Do you need a note to return to daycare/school/sports/work: No HPI EP ?Strep HPI Details This note is constructed using voice recognition software. While every effort has been made to ensure accuracy, manager revenue errors may have been included. The patient is a 38 year old female who presents to the clinic today with 3 day history of sore throat. She denies fever, chills dyspnea, does report cough, worse in the morning with throat clearing. She notes some itchiness to her throat. She had been treated for strep last month but did not complete the antibiotic concerned that this could have led to a recurrent issue, though she is had several weeks without any symptoms. She notes a longstanding history of allergies which do occur over the summertime. 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 [facility] Medical History Graves disease Non-rheumatic tricuspid valve insufficiency Migraine Vitamin D deficiency Israel's disease Surgical History Hx of section History of surgery Status post laparoscopic surgery Family History Father Graves disease Mother Paco-Danlos syndrome Social History Housing: House Alcohol intake: never Patient Tobacco Use Status: Never used Tobacco Tobacco use type: Cigarette e-Cigarette/Vaping Use: Never Used Second Hand Smoke Exposure: No service: Yes Current occupational status: employed Current occupation: [employer] Current occupational exposures/hazards: No Cognitive needs: No Hearing needs: No Vision needs: No Review of Systems Const All systems reviewed & are unremarkable except as noted in HPI and below Physical Exam Vital Signs: Last Vital Signs Temp 98.7 F 05/29/24 09:02 Pulse 73 05/29/24 09:02 BP 108/80 05/29/24 09:02 Pulse Ox 98 05/29/24 09:02 Oxygen Delivery Method Room Air 05/29/24 09:02 BMI result Body Mass Index 33.6 Const General: cooperative, healthy appearing, comfortable and no acute distress Orientation/consciousness: patient oriented x3 Limitations: no limitations HEENT Head: Yes normal to inspection Ears: hearing grossly normal bilaterally, external ears normal and TM abnormal retracted bilateral General nose exam: Normal external nose present, Normal nares present and No nasal discharge present Face and sinus: Yes normal facial exam and Yes sinuses nontender Mouth: Normal oral and palatal mucosa present and moist mucous membranes Throat: Yes tonsils normal, Yes uvula midline, Yes posterior oropharynx abnormal (Erythema), Yes postnasal drainage and Yes cobblestoning Eyes General: appearance normal, both eyes and all related structures Neck Neck: Yes normal visual inspection Resp Effort & Inspection: normal respiratory effort, able to speak in complete sentences, Actively coughing, no respiratory distress, not tachypneic, no tripod positioning and no use of accessory muscles Auscultation: clear to auscultation bilaterally Cardio Jugular venous distension: no JVD Rate: regular rate Rhythm: regular rhythm Heart sounds: S1 normal heart sound present, S2 normal heart sound present, no click, no gallops, no murmurs and no rubs Skin General skin exam: no rashes or lesions noted, elasticity normal and turgor normal Neuro General: patient oriented x3 Extrem General: Yes normal to inspection and Yes no clubbing, cyanosis or edema Results AMB Rapid Strep AMB Rapid Strep Negative Last Edit by Diego Carney CMA on 05/29/24 09:23 Assessment & Plan Assessment & Plan (1) Allergic rhinitis: Code(s): J30.9 - Allergic rhinitis, unspecified Qualifiers: Allergic rhinitis trigger: pollen Allergic rhinitis seasonality: seasonal Qualified Code(s): J30.1 - Allergic rhinitis due to pollen Plan: History and physical examination consistent with allergic rhinitis. Advised trial of [id number] second-generation antihistamine such as Zyrtec as well as use of Flonase nasal spray. Supportive measures encouraged and reviewed. Advised patient to follow up with worsening symptoms or failure to resolve with PCP. (2) Pharyngitis: Code(s): J02.9 - Acute pharyngitis, unspecified Qualifiers: Pharyngitis/tonsillitis etiology: unspecified etiology Qualified Code(s): J02.9 - Acute pharyngitis, unspecified Plan: In office rapid strep test negative. Physical examination inconsistent with st rep pharyngitis, given lack of FLEA criteria, as she does not have a fever, exudate, adenopathy, and she does have cough. Likely related to allergic rhinitis. Supportive measures discussed with the plan. Plan See above for full details and plan. Orders: Orders AMB Rapid Strep Screen Today Z13.9 - Encounter for screening, unspecified Coding Level of Care Code Est Pt Level 3 (24437) Diagnoses Seasonal allergic rhinitis due to pollen J30.1 Allergic rhinitis trigger: pollen Allergic rhinitis seasonality: seasonal Pharyngitis, unspecified etiology J02.9 Pharyngitis/tonsillitis etiology: unspecified etiology
[2024-05-29 09:02] VITALS: BP 108/80; PULSE 73; TEMP 37.1; O2SAT 98; BMI 33.6
== END 2024-05-29 09:49 | disposition home or self-care (01) ==
PROVIDERS: PCP Nurse Practitioner Family; Visit Provider Registered Nurse
DX: J30.1 Allergic rhinitis due to pollen (principal); J02.9 Acute pharyngitis, unspecified
CPT/HCPCS: 87880; 99213

== ENCOUNTER 2024-06-02 07:55 | Outpatient (REF) | payer OTHER, SELFPAY ==
--- NOTE | ~2024-06-02 | FL_ITS ---
EXAMINATION: XR FLUOROSCOPY UPPER GI WITH AIR CLINICAL INFORMATION: Epigastric pain COMPARISON: None TECHNIQUE: Fluoroscopic air contrast upper GI examination was performed utilizing standard techniques with thin and thick barium and effervescent granules. Numerous spot images were obtained. FINDINGS: Dual and single contrast images of the esophagus demonstrate normal caliber and contour. There is a granular appearance of the lower esophageal mucosa. No evidence of stricture, mass, or ulcerations identified. Esophageal peristalsis was normal. No evidence of hiatus hernia identified. No significant gastroesophageal reflux was seen during the course of the examination and on reflux views. Dual contrast and single contrast images of the stomach demonstrated a normal contour. There is a foci of contrast pooling in the fundus the stomach that may represent a small superficial aphthous ulcer. The gastric rugal folds have mildly thickened appearance. No masses are present. Contrast freely passed into the gastric antrum and duodenal bulb without delay. Single and air-contrast images of the duodenal bulb demonstrate no abnormality. The duodenal sweep has a normal appearance, course, and mucosal fold appearance. The imaged proximal jejunum has a normal fold pattern and caliber. FLUOROSCOPY TIME: 3 minutes 18 seconds Number of Spot Images: 13 Number of Cine: 13 DOSE AREA PRODUCT: 2271 uGy-m2 (microgray-meter squared) FL/FL upper GI w air IMPRESSION: 1. Granular appearance of the lower esophageal mucosa that suggests esophagitis. 2. Focal pooling of contrast in the fundus the stomach. In addition, the gastric rugal folds have a mildly thickened appearance. These findings could suggest mild gastritis. Recommend correlation with EGD. This procedure was performed by Osito Lynn PA-C, and supervised by Dr. Carmen
== END 2024-06-02 07:56 | disposition home or self-care (01) ==
LOC: HO.XRAY 07:55
PROVIDERS: PCP Nurse Practitioner Family; Visit Provider Nurse Practitioner Family
DX: R10.9 Unspecified abdominal pain (principal); K92.0 Hematemesis
CPT/HCPCS: 74246

== ENCOUNTER → 2024-06-02 07:56 | Outpatient (BNV) | payer OTHER, SELFPAY | PROVIDERS: PCP Nurse Practitioner Family; Visit Provider Physician Assistant Surgical | DX: R10.13 Epigastric pain (principal) | CPT/HCPCS: 74246 ==

== ENCOUNTER 2024-06-28 | Outpatient (REF) | payer OTHER, SELFPAY ==
[2024-06-29 14:37] LABS: Influenza A PCR NEGATIVE (Negative); Influenza B PCR NEGATIVE (Negative); Resp Syncy Virus RNA Qual PCR NEGATIVE (Negative); SARS COV2 PCR INHOUSE NEGATIVE (Negative)
== END 2024-06-28 00:01 | disposition home or self-care (01) ==
LOC: HO.HMGCLNP
PROVIDERS: Visit Provider Physician Assistant
DX: J06.9 Acute upper respiratory infection, unspecified (principal)
CPT/HCPCS: 0241U

== ENCOUNTER 2024-06-28 14:56 | Outpatient (AMB) | payer OTHER, SELFPAY ==
--- NOTE | 2024-06-28 15:00 | AM.OFFWIN_ITS ---
Intake Vital Signs 06/28/24 15:03 Height 5 ft 5 in Weight 198 lb BMI 32.9 BP 120/90 H Blood Pressure Location Lt brachial Position Sitting Pulse 85 Pulse Source Pulse Oximeter Temp 98.9 F Temp Source Oral Pulse Oximetry (%) 97 Oxygen Delivery Method Room Air Intake Visit Reasons: EP- Coughing, rash on stomach arm and leg Intake Note: Patient here for bad cough,migraine,chills and rash on stomach,arms and legs which has been present since Wednesday. Patient Tobacco Use Status: Never used Tobacco Allergies No Known Allergies [No Known Allergies*] Allergy (Verified 06/28/24 15:04) Do you need a note to return to daycare/school/sports/work: Yes HPI HPI Comments History of Present Illness Details Patient is a 38-year-old female complaining of 4 days of productive cough with yellow/green sputum. A very bad migraine which she said she is treated with sumatriptan without success, head congestion and chills. She states he also has a rash but she is not sure if it is related. She said she has spots of the rash on her abdomen, her left leg and right arm, she states the rash is itchy. She denies any fevers or ear pain or sinus pain or shortness of breath. She states she has never had a true asthma diagnosis but she feels she has lung damage from her time in the but she has never had pulmonary function tests and is not on any asthma maintenance medications or rescue inhaler. [facility] Medical History Graves disease Non-rheumatic tricuspid valve insufficiency Migraine Vitamin D deficiency Israel's disease Surgical History Hx of section History of surgery Status post laparoscopic surgery Family History Father Graves disease Mother Paco-Danlos syndrome Social History Housing: House Alcohol intake: never Patient Tobacco Use Status: Never used Tobacco Tobacco use type: Cigarette e-Cigarette/Vaping Use: Never Used Second Hand Smoke Exposure: No service: Yes Current occupational status: employed Current occupation: [employer] Current occupational exposures/hazards: No Cognitive needs: No Hearing needs: No Vision needs: No Review of Systems Const All systems reviewed & are unremarkable except as noted in HPI and below Physical Exam Vital Signs: Last Vital Signs Temp 98.9 F 06/28/24 15:03 Pulse 85 06/28/24 15:03 BP 120/90 H 06/28/24 15:03 Pulse Ox 97 06/28/24 15:03 Oxygen Delivery Method Room Air 06/28/24 15:03 BMI result Body Mass Index 32.9 Const General: cooperative, healthy appearing, comfortable and no acute distress Orientation/consciousness: patient oriented x3 Limitations: no limitations HEENT Head: Yes normal to inspection Ears: hearing grossly normal bilaterally, external ears normal and TM's normal bilaterally General nose exam: Normal external nose present, Normal nares present and No nasal discharge present Face and sinus: Yes normal facial exam and Yes sinuses nontender Mouth: Normal oral and palatal mucosa present and moist mucous membranes Throat: Yes tonsils normal, Yes uvula midline and Yes posterior oropharynx abnormal (Erythema) Eyes General: appearance normal, both eyes and all related structures Neck Neck: Yes normal visual inspection Resp Effort & Inspection: normal respiratory effort, able to speak in complete sentences, no respiratory distress, not tachypneic, no tripod positioning and no use of accessory muscles Auscultation: rhonchi (Right lower expiratory) Cardio Rate: regular rate Rhythm: regular rhythm Heart sounds: normal S1 and S2 Skin General skin exam: no rashes or lesions noted Neuro General: patient oriented x3 Extrem General: Yes normal to inspection and Yes no clubbing, cyanosis or edema Assessment & Plan Assessment & Plan (1) URI (upper respiratory infection): Code(s): J06.9 - Acute upper respiratory infection, unspecified Qualifiers: URI type: unspecified URI Qualified Code(s): J06.9 - Acute upper respiratory infection, unspecified Plan: Vital signs stable, patient well-appearing however with unclear pulmonary diagnosis and current lung sounds, we will get chest x-ray, sent flu COVID and RSV testing. If COVID negative, consider azithromycin plus or minus Augmentin pending chest x-ray results. Also send note to PCP for pulmonary function tests. Plan See above Orders: Orders XR chest 2V Today R05.9 - Cough, unspecified SARS-CoV2/FLU/RSV Today J06.9 - Acute upper respiratory infection, unspecified Coding Level of Care Code Est Pt Level 4 (09621) Diagnoses Upper respiratory tract infection, unspecified type J06.9 URI type: unspecified URI
[2024-06-28 15:03] VITALS: BP 120/90; PULSE 85; TEMP 37.2; O2SAT 97; BMI 32.9
== END 2024-06-28 16:00 | disposition home or self-care (01) ==
PROVIDERS: PCP Nurse Practitioner Family; Visit Provider Physician Assistant
DX: J06.9 Acute upper respiratory infection, unspecified (principal)
CPT/HCPCS: 99214

== ENCOUNTER 2024-06-28 15:55 | Outpatient (REF) | payer OTHER, SELFPAY | END 2024-06-28 15:56 | disposition home or self-care (01) | LOC: HO.LAB 15:55 | PROVIDERS: Visit Provider Physician Assistant | DX: Z13.89 Encounter for screening for other disorder (principal) ==

== ENCOUNTER 2024-06-28 15:56 | Outpatient (REF) | payer OTHER, SELFPAY ==
--- NOTE | ~2024-06-28 | XR_ITS ---
EXAMINATION: XR CHEST CLINICAL INFORMATION: Cough COMPARISON: 01/28/2021 TECHNIQUE: 2 views of the chest were obtained. FINDINGS: The cardiomediastinal silhouette is normal. Some reticular nodular opacities in the right lung base. No dense consolidation. No pleural effusion or pneumothorax. No acute osseous abnormalities. XR/XR chest 2V IMPRESSION: Some reticular nodular opacities in the right lung base may represent atelectasis versus a developing infiltrate. Electronically signed by: Lino Tinajero MD 06/28/2024 05:21 PM EDT
== END 2024-06-28 15:57 | disposition home or self-care (01) ==
LOC: HO.HMGCX 15:56
PROVIDERS: PCP Nurse Practitioner Family; Visit Provider Physician Assistant
DX: R05.9 Cough, unspecified (principal)
CPT/HCPCS: 71046

== ENCOUNTER 2024-10-02 08:10 | Outpatient (AMB) | payer OTHER, SELFPAY ==
[2024-10-02 08:17] VITALS: BP 124/86; PULSE 70; O2SAT 99; BMI 34.2
--- NOTE | 2024-10-02 08:17 | A.OFFPC_ITS ---
Vital Signs 10/02/24 08:17 10/02/24 08:40 Height 5 ft 5 in Weight 205 lb 8 oz BMI 34.2 BP 124/86 Blood Pressure Location Lt brachial Position Sitting Pulse 70 91 Pulse Source Pulse Oximeter Pulse Oximeter Pulse Oximetry (%) 99 99 Oxygen Delivery Method Room Air Room Air Comment Pluse and Oxyg while walking. Intake Visit Reasons: Annual PE Intake Note: Pt is here today for her Annual Physical. Allergies No Known Allergies [No Known Allergies*] Allergy (Verified 10/02/24 08:24) Medication List - Last Reconciled 10/02/24 by GABINO Dumont-EDWIN diazepam 5 mg PO BEDTIME PRN erenumab-aooe (Aimovig Autoinjector) 70 mg subcut esomeprazole magnesium (Nexium) 40 mg PO DAILY famotidine (Pepcid) 20 mg PO BEDTIME needle (disp) 27 gauge As directed sertraline 50 mg PO DAILY 90 days sumatriptan succinate 100 mg PO DIRECTED PRN 30 days Tobacco use date assessed: 10/02/24 Dental Screening Dental Screen Date: 10/02/24 Did you have a dental visit in the last 12 months?: Yes Did you have a dental problem in the last 6 months where you did not have access to dental care?: No Was dental information given to patient?: Patient has dentist HPI Annual PE HPI Details Chief Complaint PE/Intermittent shortness of breath. History of Present Illness The patient is a 39-year-old female presenting with intermittent dyspnea. The symptom of shortness of breath has been persisting for a significant duration without clear inciting events. Initially, concerns were raised about a potential cardiac etiology given her history of tricuspid valve rheumatism, which has since been evaluated and ruled out by cardiology. The shortness of breath is not associated with physical exertion such as climbing stairs and is described as random, occurring even at rest. The patient also reports occasional wheezing, which was notably present when she experienced pneumonia back in June. However, she indicates that her dyspnea did not worsen during the pneumonia episode. The patient describes moments where she struggles to catch her breath, indicating the need to take deep breaths, although this sensation is not related to anxiety or panic attacks. Previous investigation included a chest X-ray, which identified the pneumonia, and pulse oximetry at today's visit showed normal readings. A previous recommendation for pulmonary function testing (PFT) was noted but not completed. Social History - Employment: Works at [employer] ([employer]), w [employer] she enjoys. - Family: Mention of a child who is grow ing well, no further details about family status provided. - Housing and living situation: Not disc ussed in the conversation. - Tobacco, alcohol, or substance use: No t discussed in today's visit - Exercise and physical activity: Not di scussed beyond mention of shortness of breath during normal activities. Health Maintenance - Documentation of pulse oximetry readin gs during the visit. - Review of previous chest X-ray followi ng pneumonia diagnosis. Review of Systems - Respiratory: Reports intermittent shor tness of breath and occasional wheezing. Denies exacerbation during exertion or when lying down. - General: Denies shortness of breath du e to anxiety. denies CP, GI bleed, numbess tingling Physical Exam -s1s2 - Ears- Presence of wax in right and lef t ears with noted difficulty in self- clearance. - Respiratory- Clear lung sounds noted o n auscultation. - Skin- No abnormalities or lesions note d. - Neurological- Normal patellar reflexes . Negative Romberg's test. A+o no abd tenderness with palpation Results - Tests and diagnostics: Pulse oximetry during visit showing normal readings. Plan - Intermittent Dyspnea: Proceed with pul monary function testing to assess for underlying respiratory conditions such as asthma. Testing to include potential irritants to evaluate for reactive airway disease without causing significant distress. - History of Pneumonia: No additional im mediate action needed as symptoms did not exacerbate post-infection. Patient was informed and verbally consented to the use of an ambient scribe for clinic note documentation during this visit. Discussion Notes I discussed with the patient the next steps in evaluating her intermittent dyspnea, emphasizing the importance of completing the pulmonary function tests. The potential of identifying any respiratory limitations or asthma-like symptoms was explained, along with reassurance about the safety procedures during the test. We reviewed the current normal pulse oximetry findings as reassuring. I clarified the role of PFTs in differentiating between possible conditions affect ing her respiratory health. She expressed understanding and willingness to undergo the advised testing. There was a mention that any daily activities or lifestyle modifications were not discussed as current symptoms were baseline and not activity-related. Patient Instructions - Obtain pulmonary function testing as s cheduled to explore respiratory concerns. - Contact the office if symptoms of shor tness of breath worsen or new symptoms develop. - Consider assistance with ear wax clear ance given difficulty with self-care methods. - Follow up for results and further eval uation as advised. [facility] Medical History Graves disease Non-rheumatic tricuspid valve insufficiency Migraine Vitamin D deficiency Israel's disease Surgical History Hx of section History of surgery Status post laparoscopic surgery Family History Father Graves disease Mother Paco-Danlos syndrome Social History Housing: House Alcohol intake: never Patient Tobacco Use Status: Never used Tobacco Tobacco use type: Cigarette e-Cigarette/Vaping Use: Never Used Second Hand Smoke Exposure: No service: Yes Current occupational status: employed Current occupation: [employer] Current occupational exposures/hazards: No Cognitive needs: No Hearing needs: No Vision needs: No Questionnaire PHQ-9 Over the last 2 weeks, how often have you been bothered by any of the following problems? 1. Little interest or pleasure in doing things: not at all 2. Feeling down, depressed, or hopeless: not at all 3. Trouble falling or staying asleep, or sleeping too much: not at all 4. Feeling tired or having little energy: not at all 5. Poor appetite or overeating: not at all 6. Feeling bad about yourself - or that you are a failure or have let yourself or your family down: not at all 7. Trouble concentrating on things, such as reading the newspaper or watching television: not at all 8. Moving or speaking so slowly that other people could have noticed. Or the opposite - being so fidgety or restless that you have been moving around a lot more than usual: not at all 9. Thoughts that you would be better off or of hurting yourself in some way: not at all Total score: 0 Depression Screening Interpretation: Negative Depression Screening Done: Yes 79926 - PHQ-9 Billing: Yes Source: Developed by Drs. Lino Jaimes, Bekah Fernandes, Lito Guthrie and colleagues, with an educational otto from [email or web address]. Thrive Questionnaire Date Thrive assessed: 10/02/24 I am a: Patient What is your living situation today?: I have a steady place to live Within the past 12 months, did the food you bought not last and you didn't have the money to get more?: Never true Within the past 12 months, did you worry whether your food would run out before you got money to buy more?: Never true Do you have trouble paying for medicines?: No Do you have trouble getting transportation to medical appointments?: No Do you have trouble paying your heating and electricity bill?: No Do you have trouble taking care of your child, family member or friend?: No Do you have trouble with day-to-day activities such as bathing, preparing meals, shopping, managing finances, etc.?: No Are you currently unemployed and looking for a job?: No Are you interested in more education?: No Please select the resources that you would like help with: None Currently or been in a relationship where the following occur: I choose not to answer THRIVE Score: 0 AUDIT C Alcohol Use Questionnaire (AUDIT-C) 1. How often do you have a drink containing alcohol?: Never 3. How often do you have six or more drinks on one occasion?: Never Total Score: 0 Score Reviewed/Action Taken: Yes JEFFERY-7 AMB Questionnaire JEFFERY-7 Date JEFFERY - 7 assessed: 10/02/24 Feeling nervous, anxious, or on edge: 0 = Not at all Not being able to stop or control worryin = Not at all Worrying too much about different things: 0 = Not at all Trouble relaxin = Not at all Being so restless that it is hard to sit still: 0 = Not at all Becoming easily annoyed or irritable: 0 = Not at all Feeling afraid as if something awful might happen: 0 = Not at all Total JEFFERY-7 score (0-4 normal; 5-9 mild; 10-14 moderate; 15-21 severe): 0 Source: Developed by Drs. Lino Jaimes, Lito Mak and colleagues, with an educational otto from [email or web address]. JEFFERY-7 Assessment Billing JEFFERY-7 Assessment Tool: JEFFERY-7 Assessment 89660 Physical exam (Primary Care) Vital Signs: Last Vital Signs Pulse 91 10/02/24 08:40 BP 124/86 10/02/24 08:17 Pulse Ox 99 10/02/24 08:40 Oxygen Delivery Method Room Air 10/02/24 08:40 BMI result Body Mass Index 34.2 Tobacco/Smoking Status: Tobacco use Status Tobacco use date assessed 10/02/24 10/02/24 08:21 Patient Tobacco Use Status Never used Tobacco 10/02/24 08:21 Tobacco use type Cigarette 10/02/24 08:21 e-Cigarette/Vaping Use Never Used 10/02/24 08:21 PHQ-9: PHQ-9 Score PHQ-9: Total score 0 10/02/24 08:40 Depression Screening Interpretation: Negative Thrive Assessment: Date of Thrive Assessment Date Thrive assessed 10/02/24 10/02/24 08:21 Currently or been in a relationship where the following occur: I choose not to answer Office Procedures Cerumen Removal From which ear canal was the cerumen removed: bilateral Removal: irrigation Notes: patient tolerated procedure well and ear canal clear [id number] Irrigation/Lavage Coding Level of Care Code Est Pt Prev Care 18-39y(40655) Diagnoses Shortness of breath R06.02 Encounter for routine adult physical exam with abnormal findings Z00.01 Cerumen debris on tympanic membrane of both ears H61.23 CPT Codes Office Procedure - CPT: 63923-Wkn Irrigation/Lavage ([id number]) Additional Codes JEFFERY-7 Assessment Billing - JEFFERY-7 Assessment Tool: JEFFERY-7 Assessment 50760 ([id number]) PHQ-9 - 04715 - PHQ-9 Billing: Yes ([id number]) Assessment & Plan Assessment & Plan (1) Shortness of breath: Code(s): R06.02 - Shortness of breath Category: Medical (2) Encounter for routine adult physical exam with abnormal findings: Code(s): Z00.01 - Encounter for general adult medical examination with abnormal findings Category: Medical Plan: . (3) Cerumen debris on tympanic membrane of both ears: Code(s): H61.23 - Impacted cerumen, bilateral Category: Medical Plan . Orders: Orders RT pft w methacholine Today R06.02 - Shortness of breath
[2024-10-02 08:40] VITALS: PULSE 91; O2SAT 99
== END 2024-10-02 09:44 | disposition home or self-care (01) ==
PROVIDERS: PCP Nurse Practitioner Family; Visit Provider Nurse Practitioner Family
DX: Z00.00 Encounter for general adult medical examination without abnormal findings (principal); R06.02 Shortness of breath; H61.23 Impacted cerumen, bilateral

== ENCOUNTER → 2024-10-02 08:10 | Outpatient (BNVA) | payer OTHER, SELFPAY | PROVIDERS: PCP Nurse Practitioner Family; Visit Provider Nurse Practitioner Family | DX: Z00.01 Encounter for general adult medical examination with abnormal findings (principal); H61.23 Impacted cerumen, bilateral; R06.02 Shortness of breath | CPT/HCPCS: 69209; 96127; 99212 ==

== ENCOUNTER 2024-10-17 10:51 | Day surgery (SDC) | payer OTHER, SELFPAY ==
--- NOTE | 2024-10-16 09:18 | P.CONAN_ITS ---
Documented by User: Katiuska Paris NP 10/16/24 09:18 HPI - Anesthesia Eval Consult details Narrative: 39yo F for Upper Endoscopy PMFSH Active Problems Active Problems: All Active Problems Cerumen debris on tympanic membrane of both ears (Acute) Encounter for routine adult physical exam with abnormal findings (Acute) URI (upper respiratory infection) (Acute) Bloody emesis (Acute) Abdominal discomfort (Acute) Migraine (Acute) Tinnitus (Acute) Vertigo (Acute) Chronic migraine without aura (Acute) Dysplastic nevus (Acute) (Acute) Graves disease (Acute) Difficult (Acute) Shortness of breath (Acute) Dizziness (Acute) Non-rheumatic tricuspid valve insufficiency (Acute) Vitamin D deficiency (Acute) Israel's disease (Acute) Low hematocrit (Acute) Low TSH level (Acute) Past Medical History Medical History Graves disease Non-rheumatic tricuspid valve insufficiency Migraine Vitamin D deficiency Israel's disease Family History Family History Father Graves disease Mother Paco-Danlos syndrome Surgical History Surgical History Hx of section History of surgery Status post laparoscopic surgery Social History Social History Housing: House Alcohol intake: never Patient Tobacco Use Status: Never used Tobacco Tobacco use type: Cigarette e-Cigarette/Vaping Use: Never Used Second Hand Smoke Exposure: No Have you been hit, kicked, punched, or otherwise hurt by someone within the past year? If so, by whom?: No Are you DNR?: No Advance Directives: No Advance Directives Information Provided: Yes FDLMP: last week service: Yes Current occupational status: employed Current occupation: [employer] Current occupational exposures/hazards: No Cognitive needs: No Hearing needs: No Vision needs: No Meds Allergies Allergy/AdvReac Type Severity Reaction Status Date / Time No Known Allergies Allergy Verified 10/02/24 08:24 [No Known Allergies*] Home Medications ?Medication ?Instructions ?Recorded ?Confirmed ?Last Taken ?Type needle (disp) 27 gauge 27 gauge x #1,000 ea 12/05/20 10/02/24 Unknown History 1/2 erenumab-aooe 70 mg/mL 70 mg subcut 03/29/24 10/02/24 Unknown History subcutaneous auto-injector (Aimovig Autoinjector) Assessment and Plan Assessment Anesthesia Assessment: Chart Reviewed Documented by User: Macey Ramsey MD 10/17/24 12:22 [facility] Past Medical History Medical History Graves disease Non-rheumatic tricuspid valve insufficiency Migraine Vitamin D deficiency Israel's disease Family History Family History Father Graves disease Mother Paco-Danlos syndrome Family history of problems with anesthesia: No Surgical History Surgical History Hx of section History of surgery Status post laparoscopic surgery History of Problems with Anesthesia: No Social History Social History Housing: House Alcohol intake: never Patient Tobacco Use Status: Never used Tobacco Tobacco use type: Cigarette e-Cigarette/Vaping Use: Never Used Second Hand Smoke Exposure: No Have you been hit, kicked, punched, or otherwise hurt by someone within the past year? If so, by whom?: No Are you DNR?: No Advance Directives: No Advance Directives Information Provided: Yes FDLMP: last week service: Yes Current occupational status: employed Current occupation: [employer] Current occupational exposures/hazards: No Cognitive needs: No Hearing needs: No Vision needs: No Meds Allergies Allergy/AdvReac Type Severity Reaction Status Date / Time No Known Allergies Allergy Verified 10/02/24 08:24 [No Known Allergies*] Home Medications ?Medication ?Instructions ?Recorded ?Confirmed ?Last Taken ?Type needle (disp) 27 gauge 27 gauge x #1,000 ea 12/05/20 10/02/24 Unknown History 1/2 erenumab-aooe 70 mg/mL 70 mg subcut 03/29/24 10/02/24 Unknown History subcutaneous auto-injector (Aimovig Autoinjector) Exam Airway Mallampati Class: II TM Dist: >3cm Neck ROM: Full Assessment and Plan Assessment Anesthesia Assessment: Anesthesia Plan Discussed Final Anesthetic Review Family History of Problems with Anesthesia: No History of Problems with Anesthesia: No NPO: Yes ASA Class: II Final Preanesthetic Review: No Changes in Pt Med Stat, Meds/Allgs Chart Revie wed, Consent Obtained/Reviewed and Anes Risks/Benef Reviewed Patient Risk: Low Procedure Risk: Low Anesthetic Plan Anesthetic Plan: TIVA Disposition: Standard PACU
[2024-10-17 10:47] VITALS: BMI 34.3
[2024-10-17 11:02] VITALS: BP 132/87; PULSE 78; RESP 20; TEMP 37.1; O2SAT 98
[2024-10-17] MEDS: Lactated Ringers 1,000 ML 100 ML IVCONT (11:18)
[2024-10-17 11:21] LABS: UPreg QC Valid YES; Urine Pregnancy NEGATIVE (NEGATIVE)
--- NOTE | 2024-10-17 11:36 | MHC.SHP ---
Pre-Procedural Eval Section A - 24 Hr Update-Section A only Date of Service: 10/17/24 Section B - Complete if H&P > 30 days Chief Complaint: Gastro-esophageal reflux disease without esophagit Relevant Family History (Specify if Yes): No Relevant Social History: None Present Medications: see Short Stay Collaborative assessment Medical History: Significant History (Graves disease Non-rheumatic tricuspid valve insufficiency Migraine Vitamin D deficiency Israel's disease) History of Previous Operations: Relevant previous surgery/procedure and date(s) (Hx of section History of surgery Status post laparoscopic surgery) Allergies: Allergies Allergy/AdvReac Type Severity Reaction Status Date / Time No Known Allergies Allergy Verified 10/02/24 08:24 [No Known Allergies*] Review of Systems Sugical H&P ROS: Negative: Constitution, Cardiovascular, Respiratory, Neurological, Psychiatric, Hem-Onc, Allergic/Immunologic, Gastrointestinal, Genitourinary, Musculoskeletal, Integumentary, Endocrine and Eyes/Ears/Nose/Throat Exam Surgical H&P Exam: Normal: HEENT, Normal: Heart, Normal: Lungs, Normal: Extremities, Normal: Abdomen, Normal: Skin and Normal: Neurological Plan Diagnosis/Plan: Unchanged I have reviewed the history and physical and performed a pertinent physical examination on my patient. No changes have occurred unless specified. Time Spent With Patient Time: Total time managing care of this patient today ____ minutes.
--- NOTE | 2024-10-17 12:51 | W.PM.OPN ---
Operative Note Operative Note Date of Service: 10/17/24 Narrative: Procedure Description: EGD Indication: epigastric pain Anesthesia: MAC FLEXIBLE TRANSORAL UPPER GASTROINTESTINAL ENDOSCOPY UPPER ENDOSCOPY Consent: Indications for the procedure and potential complications of bleeding, perforation, reaction to medications and missed diagnosis were discussed with the patient and informed consent was obtained. Instrument: Olympus GIF H 190 J mid size upper endoscope Monitoring: Vital signs and clinical assessment, continuous EKG monitoring, Pulse oximetry, Carbon Dioxide monitoring and blood pressure monitoring were done throughout the procedure. Procedure: The patient was placed in the left lateral decubitis position and pre-procedure medications were administered and a bite block was placed. The endoscope was inserted into the mouth and advanced under direct vision to the third part of duodenum. A careful inspection was made as the upper endoscope was withdrawn including a retroflexed examination of the proximal stomach; Findings and interventions are described below. Findings: Larynx:normal Esophagus: GE junction at 38 cm, diaphragm hiatus at 38 cm, bogginess and erythema at LES, bx taken from distal and proximal esophagus -LES was patulous Stomach: patchy erythema in the antrum . Biopsies were obtained. Grade 2 flap valve on retroflexed examination of the cardia. Duodenum: Normal bulb and descending duodenum, bx taken Intervention: Biopsies as noted above, Impression/Findings: gastritis esophagitis patulous GEJ PLAN: ensure compliance with PPI--if ongoing sx then GES to r/o gastroparesis GERD precautions
[2024-10-17 12:57] VITALS: BP 93/71; PULSE 93; RESP 16; TEMP 36.6; O2SAT 95
[2024-10-17 13:10] VITALS: BP 92/71; PULSE 78; RESP 16; O2SAT 97
[2024-10-17 13:25] VITALS: BP 112/82; PULSE 75; RESP 16; O2SAT 99
[2024-10-17 13:40] VITALS: BP 120/87; PULSE 77; RESP 16; TEMP 36.6; O2SAT 98
== END 2024-10-17 14:34 | disposition home or self-care (01) ==
PROVIDERS: Nurse Practitioner; PCP Nurse Practitioner Family; Visit Provider Internal Medicine Gastroenterology
PROC: 0DJ08ZZ Inspection of Upper Intestinal Tract, Via Natural or Artificial Opening Endoscopic (ICD-10-PCS; CPT 43235; principal; 2024-10-17 13:20)
DX: R10.13 Epigastric pain (principal); K29.50 Unspecified chronic gastritis without bleeding; K21.9 Gastro-esophageal reflux disease without esophagitis; K22.4 Dyskinesia of esophagus; R14.0 Abdominal distension (gaseous); K59.01 Slow transit constipation; E05.00 Thyrotoxicosis with diffuse goiter without thyrotoxic crisis or storm; E06.3 Autoimmune thyroiditis; I36.1 Nonrheumatic tricuspid (valve) insufficiency; G43.909 Migraine, unspecified, not intractable, without status migrainosus; E55.9 Vitamin D deficiency, unspecified; Z79.1 Long term (current) use of non-steroidal anti-inflammatories (NSAID); Z79.899 Other long term (current) drug therapy; Z98.890 Other specified postprocedural states; Z87.891 Personal history of nicotine dependence
CPT/HCPCS: 43239; 81025; 88305; 88313; 88342; J2003; J2704

== ENCOUNTER → 2024-10-17 10:51 | Outpatient (BNV) | payer OTHER, SELFPAY | PROVIDERS: PCP Nurse Practitioner Family; Visit Provider Internal Medicine Gastroenterology | DX: R10.13 Epigastric pain (principal); K20.90 Esophagitis, unspecified without bleeding; K29.70 Gastritis, unspecified, without bleeding; Q43.8 Other specified congenital malformations of intestine | CPT/HCPCS: 43239 ==

== ENCOUNTER 2024-11-03 09:08 | Outpatient (AMB) | payer OTHER, SELFPAY ==
[2024-11-03 09:10] VITALS: BP 114/70; PULSE 88; O2SAT 97; BMI 34.1
--- NOTE | 2024-11-03 09:10 | A.OFFVIS_ITS ---
Vital Signs 11/03/24 09:10 Height 5 ft 5 in Weight 205 lb 0.478 oz BMI 34.1 BP 114/70 Blood Pressure Location Lt brachial Position Sitting Pulse 88 Pulse Source Pulse Oximeter Pulse Oximetry (%) 97 Oxygen Delivery Method Room Air Intake Visit Reasons: s/p egd Intake Note: ESTABLISHED PATIENT Joann presents in office today for a scheduled s/p FUV Meds and Allergies reviewed? Y No recent or relevant surgeries? duo w/ TH Any significant concerns or new changes? No significant changes. Chronic sx still present. Pharmacy verified? [facility] [employer] Required: No Allergies No Known Allergies [No Known Allergies*] Allergy (Verified 11/03/24 09:10) HPI HPI s/p egd: Details: LAST VISIT: Abdominal discomfort Postprandial epigastric pain GERD (gastroesophageal reflux disease) Abdominal bloating Constipation Plan Patient reports postprandial epigastric pain and bloating. Patient will start taking Nexium in the morning and famotidine at bedtime. Avoid dietary triggers and late night snacking. Staying upright for minimum 3 hours after meals discus sed with patient. Patient has upper GI series ordered awaiting scheduling that test. Lab work to rule out pancreatitis, celiac. Patient was encouraged to increase fluid intake and activity to promote better bowel motility. Patient will start taking Dulcolax in the evening. Patient will be sent for upper endoscopy to rule out gastritis, esophagitis, duodenitis, gastric or peptic ulcer, H pylori, Hernandez's. Patient denies any issues with anesthesia in the past. No history of sleep apnea. Not on any anticoagulation medication. Stop taking NSAIDs for week before procedure. I will see patient after the procedure, sooner on as needed basis. Patient is agreeable to current plan of care and verbalizes understanding of instructions. She was given the opportunity to ask questions and all questions answered. ? Thank you for allowing me to participate in her care Orders Orders Transglutaminase IgA Today R10.9 Transglutaminase Ab IgG Today R10.9 FL upper GI series 03/29/24 K92.0, R10.9 Medications New bisacodyl (Dulcolax (bisacodyl)) 10 mg (2 x 5 mg) PO BEDTIME 60 tabs 4RF esomeprazole magnesium (Nexium) Take half an hour before breakfast 40 mg PO DAILY 30 caps 5RF K21.9 famotidine (Pepcid) 20 mg PO BEDTIME 30 tabs 3RF K21.9 Discontinued pantoprazole Discontinued Reason: Doctor's Order 20 mg PO DAILY 90 tabs 0RF UPPER ENDOSCOPY: Findings: Larynx:normal Esophagus: GE junction at 38 cm, diaphragm hiatus at 38 cm, bogginess and erythema at LES, bx taken from distal and proximal esophagus -LES was patulous Stomach: patchy erythema in the antrum . Biopsies were obtained. Grade 2 flap valve on retroflexed examination of the cardia. Duodenum: Normal bulb and descending duodenum, bx taken Intervention: Biopsies as noted above, Impression/Findings: gastritis esophagitis patulous GEJ PLAN: ensure compliance with PPI--if ongoing sx then GES to r/o gastroparesis GERD precautions PATHOLOGY Diagnosis A. Duodenum, biopsy: Duodenal mucosa within normal limits. B. Stomach, biopsy: Antral-type and oxyntic mucosa with mild chronic inactive inflammation; no Helicobacter organisms seen. C. Esophagus, distal, biopsy: Squamous epithelium within normal limits; no inflammation seen. D. Esophagus, proximal, biopsy: Active esophagitis (maximum eosinophil count 1 per high powered field). TODAY'S VISIT Patient is here today for follow-up and to discuss upper endoscopy results. Patient reports that she has been feeling well after the procedure. Continues with symptoms occasionally. Patient reports epigastric pain sometimes even when she is not eating. Occasional feeling nauseous in the morning. Patient is taking famotidine at night time and Nexium in the morning. Patient admits to feeling full quickly after meals. Patient reports to be constipated. Denies any nausea or vomiting. Reports dyspepsia without dysphagia or odynophagia. Reports occasional postprandial abdominal bloating and epigastric pain. [facility] Medical History Graves disease Non-rheumatic tricuspid valve insufficiency Migraine Vitamin D deficiency Israel's disease Surgical History Hx of section History of surgery Status post laparoscopic surgery Family History Father Graves disease Mother Paco-Danlos syndrome Social History Housing: House Alcohol intake: never Patient Tobacco Use Status: Never used Tobacco Tobacco use type: Cigarette e-Cigarette/Vaping Use: Never Used Second Hand Smoke Exposure: No service: Yes Current occupational status: employed Current occupation: [employer] Current occupational exposures/hazards: No Cognitive needs: No Hearing needs: No Vision needs: No Review of Systems Const Denies weight gain and Denies weight loss ENT Reports no additional complaints, Denies dysphagia and Denies odynophagia Card Reports no additional complaints Resp Reports no additional complaints GI Denies abdominal pain, Denies belching, Denies melena, Denies bloating, Denies change in bowel habits, Denies dysphagia, Denies excessive flatus, Denies dyspepsia, Denies heartburn, Denies diarrhea, Denies loose stools, Denies nausea, Denies odynophagia and Denies vomiting Musc Reports no additional complaints Neuro Reports no additional complaints Psych Reports no additional complaints Endo Reports no additional complaints Physical Exam Vital Signs: Last Vital Signs Pulse 88 11/03/24 09:10 BP 114/70 11/03/24 09:10 Pulse Ox 97 11/03/24 09:10 Oxygen Delivery Method Room Air 11/03/24 09:10 BMI result Body Mass Index 34.1 Const General: healthy appearing and no acute distress Nutritional Appearance: obese Orientation/consciousness: patient oriented x3 Resp Effort & Inspection: normal respiratory effort, able to speak in complete sentences, no tracheal deviation and symmetric chest movement Auscultation: clear to auscultation bilaterally Cardio Rate: regular rate GI Inspection: Yes normal to inspection, No distended and Yes obesity Palpation (GI): Soft to palpation, not firm, nontender and No hepatosplenomegaly present Auscultation: normal bowel sounds General: Yes no CVA tenderness Back/Spine/Pelvis Back: no CVA tenderness Skin General skin exam: elasticity normal, turgor normal and dry skin Neuro General: patient oriented x3 Psych Appearance: grossly normal Mental Status: mental status grossly normal Results Reviewed Results Reviewed: UPPER GI SERIES IMPRESSION: 1. Granular appearance of the lower esophageal mucosa that suggests esophagitis. 2. Focal pooling of contrast in the fundus the stomach. In addition, the gastric rugal folds have a mildly thickened appearance. These findings could suggest mild gastritis. Recommend correlation with EGD. Assessment & Plan Assessment & Plan (1) Abdominal discomfort: Code(s): R10.9 - Unspecified abdominal pain Category: Medical (2) Postprandial epigastric pain: Code(s): R10.13 - Epigastric pain (3) GERD (gastroesophageal reflux disease): Code(s): K21.9 - Gastro-esophageal reflux disease without esophagitis (4) Abdominal bloating: Code(s): R14.0 - Abdominal distension (gaseous) (5) Constipation: Code(s): K59.00 - Constipation, unspecified (6) Early satiety: Code(s): R68.81 - Early satiety Plan Upper GI series reviewed with patient. Gastritis and esophagitis shown. Upper endoscopy confirmed that. Patient will change PPI to pantoprazole. Avoid dietary triggers and late night snacking. Staying upright for minimum 3 hours after meals discussed with patient. Patient will stop famotidine and will start sucralfate. Sucralfate will most likely worsen her constipation and patient was advised to increase fluid intake and will start Dulcolax daily. Will send her for gastric emptying study to rule out gastroparesis. I will see patient in 4 months, sooner on as needed basis. She is agreeable to this plan and verbalizes understanding of instructions. She was given the opportunity to ask questions a nd all questions answered. Thank you for allowing me to participate in her care Orders: Orders NM gastric emptying study Today R68.81 - Early satiety Medications: New sucralfate 1 g PO BEDTIME 30 tabs 4RF R19.7 - Diarrhea, unspecified pantoprazole take one tablet half an hour before breakfast 40 mg PO DAILY 30 tabs 3RF K21.9 - Gastro-esophageal reflux disease without esophagitis bisacodyl (Dulcolax (bisacodyl)) 10 mg (2 x 5 mg) PO BEDTIME 60 tabs 4RF Discontinued esomeprazole magnesium (Nexium) Take half an hour before breakfast Discontinued Reason: Doctor's Order 40 mg PO DAILY 30 caps 5RF K21.9 - Gastro-esophageal reflux disease without esophagitis famotidine (Pepcid) Discontinued Reason: Doctor's Order 20 mg PO BEDTIME 30 tabs 3RF K21.9 - Gastro-esophageal reflux disease without esophagitis Coding Level of Care Code Est Pt Level 4 (85589) Complex EM visit Add On G2211 Diagnoses Abdominal discomfort R10.9 Postprandial epigastric pain R10.13 GERD (gastroesophageal reflux disease) K21.9 Abdominal bloating R14.0 Constipation K59.00 Early satiety R68.81 Time Spent (min) 35 Comment 20 minutes spent with patient and additional 15 minutes spent reviewing her records
== END 2024-11-03 10:20 | disposition home or self-care (01) ==
PROVIDERS: PCP Nurse Practitioner Family; Visit Provider Nurse Practitioner Family
DX: R10.9 Unspecified abdominal pain (principal); R10.13 Epigastric pain; K21.9 Gastro-esophageal reflux disease without esophagitis; R14.0 Abdominal distension (gaseous); K59.00 Constipation, unspecified; R68.81 Early satiety
CPT/HCPCS: 99214

== ENCOUNTER → 2024-11-03 09:08 | Outpatient (BNVA) | payer OTHER, SELFPAY | PROVIDERS: PCP Nurse Practitioner Family; Visit Provider Nurse Practitioner Family | DX: K21.9 Gastro-esophageal reflux disease without esophagitis (principal); K59.00 Constipation, unspecified; R68.81 Early satiety; R19.7 Diarrhea, unspecified; R10.9 Unspecified abdominal pain; R10.13 Epigastric pain; R14.0 Abdominal distension (gaseous) | CPT/HCPCS: 99212 ==